=== PATIENT | female | born 1995 | race Caucasian/White ===

== ENCOUNTER 2018-04-22 19:14 | Outpatient (CLI) | payer OTHER ==
[2018-04-22 20:53] VITALS: BP 126/72; PULSE 88; RESP 16; TEMP 96.6
--- NOTE | 2018-04-23 07:44 | P.MSEPDOC ---
Presenting Problems - Arrival Data Date of Arrival on Unit: 04/22/18 Time of Arrival on Unit: 19:14 Mode of Transport: Ambulatory - Complaint OB-Reason for Admission/Chief Complaint: Decreased Movement Medical History - Information : 1 Para: 0 Term: 0 : 0 Abortions: Spontaneous or Elective: 0 Number of Living Children: 0 - Gestational Age Gestational Age by LES (wks/days): 39 Weeks and 1 Days Review of Systems - Review of Systems Constitutional: No problems Breast: No problems ENT: No problems Cardiovascular: No problems Respiratory: No problems Gastrointestinal: No problems Genitourinary: No problems Musculoskeletal: No problems Neurological: No problems Skin: No problems Vital Signs - Temperature Temperature: 96.6 F Temperature Source: Temporal Artery Scan - Pulse Right Brachial Pulse Rate: 88 Pulse Assessment Method: Automatic Cuff - Respirations Respiratory Rate: 16 Oxygen Delivery Method: Room Air O2 Sat by Pulse Oximetry: 98 - Blood Pressure Right Arm Blood Pressure: 126/72 Blood Pressure Mean: 90 Blood Pressure Source: Automatic Cuff Medical Screen Scoring (Pre) - Cervical Exam Dilation: Exam Deferred Effacement: Exam Deferred Membranes: Intact - Uterine Contractions Frequency: N/A Duration: N/A Intensity: N/A - Maternal Vital Signs Maternal Temperature: N/A Maternal Blood Pressure: N/A Signs of Preeclampsia: N/A Maternal Respirations: N/A - Pain Assessment Pain Scale Used: Numeric (1 - 10) Pain Intensity: 0 - Maternal Trauma Maternal Trauma: N/A - Assessment Baseline FHR: 120 Heart Rate - NICHD Category: Category I (Normal) = 0 NST: Reactive Position: N/A Station: N/A - Total Score Total Score (Pre): 0 - Level of Risk Level of Risk: Low (0-5) Physician Notification (Pre) - Physician Notified Physician Notified Date: 04/22/18 Physician Notified Time: 19:46 Physician/Practitioner Notifed:: Dr. Page Spoke With: Dr. Page New Order Received: Yes - Notification Comment Comment: Dr Page called and given report on pt in tr. Pt c/o. VS WNL. Reactive Nst. Irregular fht noted audibly at times. No c/o of contractions. movement noted. audibly and per nurse palpation. Orders recieved to d/c pt to home. Disposition - Disposition OB Disposition: Discharge to home Discharge Date: 04/22/18 Discharge Time: 19:55 I agree with the RN Medical Screening Exam: Yes Risk & Benefit of care provided described in d/c instruction: Yes Diagnosis: DECREASED MOVEMENTS, THIRD TRIMESTER, FETUS 1 (Patient pr esented with complaints of decreased movement. Patient is been getting care elsewhere apparently has an appointment with an automotive worker here in town in the next few days. Nonstress test was category 1. There is no evidence of maternal or compromise and therefore she is felt to be stable for discharge home follow up with her automotive worker. Patient was feeling movement here.)
== END 2018-04-22 19:55 | disposition home or self-care (01) ==
LOC: FBPOP 19:14
PROVIDERS: ATTEND Obstetrics & Gynecology
DX: O36.8131 Decreased fetal movements, third trimester, fetus 1 (principal); Z3A.39 39 weeks gestation of pregnancy
CPT/HCPCS: 59025; 99213

== ENCOUNTER 2018-07-06 10:44 | Emergency (ER) | payer OTHER ==
[2018-07-06 10:58] VITALS: TEMP 98.1
[2018-07-06] MEDS ORDERED: ONDANSETRON 4 MG/2 ML VIAL IVP STA (11:31)
[2018-07-06] MEDS ORDERED: KETOROLAC 30 MG/ML 1 ML VIAL IVP STA (11:31)
[2018-07-06] MEDS ORDERED: PANTOPRAZOLE 40 MG/10 ML VIAL IVP STA (11:31)
[2018-07-06] MEDS ORDERED: SODIUM CHLORIDE 0.9% 1,000 ML IV STA ×2 (11:31)
--- NOTE | 2018-07-06 11:35 | ED ---
Abdominal Pain HPI - General Chief Complaint: Abdominal Pain Stated Complaint: abdominal pain/blood in stool/dizziness Time Seen by Provider: 07/06/18 11:14 Source: patient, RN notes reviewed, old records reviewed Mode of arrival: ambulatory Limitations: no limitations - History of Present Illness Initial Comments: Patient is a 22-year-old female presents emergency department today complains of lower abdominal cramping that woke her up this morning. She states she had a bowel movement and noticed some bright red blood within each stool. She reports she had 4 bowel movements within the past hour. She states that she has had no recent travel history, denies any recent food exposures or any history of sick contacts with similar complaints. She denies any vomiting or nausea. Patient states that she's had no fevers or chills. She is 3 months for first child. She does state that she's been having intermittent vaginal bleeding sin ce that time but was started on the next one on. Her COMPRESS ENGINEER is Dr. Mcdonald. She denies any dysuria, or back pain. - Related Data Previous Rx's Medication Instructions Recorded Cephalexin [Keflex] 500 mg PO Q8HR #21 cap 07/06/18 Allergies Allergy/AdvReac Type Severity Reaction Status Date / Time Penicillins Allergy Swelling Verified 07/06/18 10:58 Sulfa (Sulfonamide Allergy Swelling Verified 07/06/18 10:58 Antibiotics) Review of Systems ROS Statement: Those systems with pertinent positive or pertinent negative responses have been documented in the HPI. ROS Other: All systems not noted in ROS Statement are negative. Past Medical History Past Medical History: No Reported History Additional Past Medical History / Comment(s): hydratinitis suppertiva- skin condition History of Any Multi-Drug Resistant Organisms: None Reported Past Surgical History: No Surgical Hx Reported Additional Past Surgical History / Comment(s): foot surgery 2007- bone chip removal Past Anesthesia/Blood Transfusion Reactions: No Reported Reaction Past Psychological History: No Psychological Hx Reported, Anxiety, Depression Smoking Status: Former smoker Past Alcohol Use History: None Reported Past Drug Use History: Marijuana - Past Family History Father Family Medical History: Coronary Artery Disease (CAD), Hypertension Mother Family Medical History: Hypertension Additional Family Medical History / Comment(s): anxiety/depression General Exam - General Exam Comments Initial Comments: 22-year-old female. Alert and oriented. No significant distress. Limitations: no limitations General appearance: alert, in no apparent distress Head exam: Present: atraumatic, normocephalic, normal inspection Eye exam: Present: normal appearance, PERRL, EOMI. Absent: scleral icterus, conjunctival injection, periorbital swelling ENT exam: Present: normal exam, mucous membranes moist Neck exam: Present: normal inspection. Absent: tenderness, meningismus, lymphadenopathy Respiratory exam: Present: normal lung sounds bilaterally. Absent: respiratory distress, wheezes, rales, rhonchi, stridor Cardiovascular Exam: Present: regular rate, normal rhythm, normal heart sounds. Absent: systolic murmur, diastolic murmur, rubs, gallop, clicks GI/Abdominal exam: Present: soft, normal bowel sounds. Absent: distended, tenderness, guarding, rebound, rigid Extremities exam: Present: normal inspection, full ROM, normal capillary refill. Absent: tenderness, pedal edema, joint swelling, calf tenderness Back exam: Present: normal inspection Neurological exam: Present: alert, oriented X3, CN II-XII intact Psychiatric exam: Present: normal affect, normal mood Skin exam: Present: warm, dry, intact, normal color. Absent: rash Course Vital Signs 07/06/18 10:55 Temperature 98.1 F Pulse Rate 85 Respiratory 18 Rate Blood Pressure 114/81 O2 Sat by Pulse 100 Oximetry Medical Decision Making - Medical Decision Making 20 for family stressors are safer lower dull cramping,. The cramping pain. She also has bloody stool. Patient has some bright blood per rectum, but no significant external hemorrhoids noted. Patient didn't sided flank and abdomina l tenderness. Urinalysis does show mild infection. Culture be completed. Patient CT of abdomen and pelvis shows no evidence of colitis, there was some straightening possible contusion around the kidney. Patient will be treated the same a short course of Macrobid to treat for urinary tract infection advised the Patient follow-up with her primary care doctor about the possibility of internal hemorrhoids that may be PVCs needing to see a surgeon. We'll discharge Patient was stool softeners. All questions answered. - Lab Data Result diagrams: 07/06/18 11:20 07/06/18 11:20 Lab Results 07/06/18 07/06/18 07/06/18 Range/Units 11:20 11:20 11:20 WBC 11.5 H (3.8-10.6) k/uL RBC 4.17 (3.80-5.40) m/uL Hgb 10.5 L (11.4-16.0) gm/dL Hct 34.6 (34.0-46.0) % MCV 82.8 (80.0-100.0) fL MCH 25.2 (25.0-35.0) pg MCHC 30.5 L (31.0-37.0) g/dL RDW 14.9 (11.5-15.5) % Plt Count 494 H (150-450) k/uL Neutrophils % 79 % Lymphocytes % 16 % Monocytes % 3 % Eosinophils % 2 % Basophils % 0 % Neutrophils # 9.1 H (1.3-7.7) k/uL Lymphocytes # 1.8 (1.0-4.8) k/uL Monocytes # 0.3 (0-1.0) k/uL Eosinophils # 0.2 (0-0.7) k/uL Basophils # 0.0 (0-0.2) k/uL Hypochromasia Slight PT 9.4 (9.0-12.0) sec INR 0.9 (<1.2) APTT 27.0 (22.0-30.0) sec Sodium 140 (137-145) mmol/L Potassium 4.4 (3.5-5.1) mmol/L Chloride 110 H (98-107) mmol/L Carbon Dioxide 23 (22-30) mmol/L Anion Gap 7 mmol/L BUN 8 (7-17) mg/dL Creatinine 0.63 (0.52-1.04) mg/dL Est GFR (CKD-EPI)AfAm >90 (>60 ml/min/1.73 sqM) Est GFR (CKD-EPI)NonAf >90 (>60 ml/min/1.73 sqM) Glucose 78 (74-99) mg/dL Calcium 9.2 (8.4-10.2) mg/dL Total Bilirubin 0.4 (0.2-1.3) mg/dL AST 19 (14-36) U/L ALT 21 (9-52) U/L Alkaline Phosphatase 82 (38-126) U/L Total Protein 7.0 (6.3-8.2) g/dL Albumin 4.1 (3.5-5.0) g/dL Amylase 52 (30-110) U/L Lipase 55 (23-300) U/L Urine Color Urine Appearance (Clear) Urine pH (5.0-8.0) Ur Specific Bohannon (1.001-1.035) Urine Protein (Negative) Urine Glucose (UA) (Negative) Urine Ketones (Negative) Urine Blood (Negative) Urine Nitrite (Negative) Urine Bilirubin (Negative) Urine Urobilinogen (<2.0) mg/dL Ur Leukocyte Esterase (Negative) Urine RBC (0-5) /hpf Urine WBC (0-5) /hpf Ur Squamous Epith Cells (0-4) /hpf Urine Bacteria (None) /hpf Urine Mucus (None) /hpf Stool Occult Blood (Negative) 07/06/18 07/06/18 Range/Units 11:20 11:20 WBC (3.8-10.6) k/uL RBC (3.80-5.40) m/uL Hgb (11.4-16.0) gm/dL Hct (34.0-46.0) % MCV (80.0-100.0) fL MCH (25.0-35.0) pg MCHC (31.0-37.0) g/dL RDW (11.5-15.5) % Plt Count (150-450) k/uL Neutrophils % % Lymphocytes % % Monocytes % % Eosinophils % % Basophils % % Neutrophils # (1.3-7.7) k/uL Lymphocytes # (1.0-4.8) k/uL Monocytes # (0-1.0) k/uL Eosinophils # (0-0.7) k/uL Basophils # (0-0.2) k/uL Hypochromasia PT (9.0-12.0) sec INR (<1.2) APTT (22.0-30.0) sec Sodium (137-145) mmol/L Potassium (3.5-5.1) mmol/L Chloride (98-107) mmol/L Carbon Dioxide (22-30) mmol/L Anion Gap mmol/L BUN (7-17) mg/dL Creatinine (0.52-1.04) mg/dL Est GFR (CKD-EPI)AfAm (>60 ml/min/1.73 sqM) Est GFR (CKD-EPI)NonAf (>60 ml/min/1.73 sqM) Glucose (74-99) mg/dL Calcium (8.4-10.2) mg/dL Total Bilirubin (0.2-1.3) mg/dL AST (14-36) U/L ALT (9-52) U/L Alkaline Phosphatase (38-126) U/L Total Protein (6.3-8.2) g/dL Albumin (3.5-5.0) g/dL Amylase (30-110) U/L Lipase (23-300) U/L Urine Color Light Yellow Urine Appearance Cloudy H (Clear) Urine pH 6.0 (5.0-8.0) Ur Specific Boh[place] 1.007 (1.001-1.035) Urine Protein Negative (Negative) Urine Glucose (UA) Negative (Negative) Urine Ketones Negative (Negative) Urine Blood Moderate H (Negative) Urine Nitrite Negative (Negative) Urine Bilirubin Negative (Negative) Urine Urobilinogen <2.0 (<2.0) mg/dL Ur Leukocyte Esterase Small H (Negative) Urine RBC 3 (0-5) /hpf Urine WBC 6 H (0-5) /hpf Ur Squamous Epith Cells 12 H (0-4) /hpf Urine Bacteria Rare H (None) /hpf Urine Mucus Rare H (None) /hpf Stool Occult Blood Positive H (Negative) - Radiology Data Radiology results: report reviewed No findings to correlate with hematochezia or melena no pericolic fat stranding. Subcutaneous that straining slightly more focal on the right than left particularly of the right flank. Correlate with fluid overload or contusion. Minimal left basilar stranding opacity that may represent atelectasis or developing pneumonia. Mild degree of hepatic steatosis. Disposition Clinical Impression: Enteritis, UTI (urinary tract infection) Disposition: HOME SELF-CARE Condition: Good Instructions (If sedation given, give patient instructions): Hemorrhoids (ED), Enteritis (ED), Urinary Tract Infection in Women (DC) Additional Instructions: Follow-up with her primary care physician. Clear liquid diet for next 1-2 days. Return to the emergency department if any alarming signs or symptoms occur. Prescriptions: Cephalexin [Keflex] 500 mg PO Q8HR #21 cap Is patient prescribed a controlled substance at d/c from ED?: No Referrals: None,Stated [Primary Care Provider] - 1-2 days
[2018-07-06 12:14] LABS: Basophils % (A) 0 %; Eosinophils # (A) 0.2 k/uL (0-0.7); Eosinophils % (A) 2 %; HCT 34.6 % (34.0-46.0); HGB 10.5 gm/dL (11.4-16.0); Hypochromasia Slight; Lymphocytes # (A) 1.8 k/uL (1.0-4.8); Lymphocytes % (A) 16 %; MCH 25.2 pg (25.0-35.0); MCHC 30.5 g/dL (31.0-37.0); MCV 82.8 fL (80.0-100.0); Mean Platelet Volume 6.2; Monocytes # (A) 0.3 k/uL (0-1.0); Monocytes % (A) 3 %; Neutrophils # (A) 9.1 k/uL (1.3-7.7); Neutrophils % (A) 79 %; Platelet Count 494 k/uL (150-450); RBC 4.17 m/uL (3.80-5.40); RDW 14.9 % (11.5-15.5); WBC 11.5 k/uL (3.8-10.6)
--- NOTE | 2018-07-06 12:22 | XR ---
EXAMINATION TYPE: XR KUB DATE OF EXAM: 07/06/2018 12:10 PM CLINICAL HISTORY: Lower abdominal pain and bloody stool TECHNIQUE: Single upright image of the abdomen is obtained. COMPARISON: 09/19/2012. FINDINGS: Scattered gas is seen in non-distended small bowel loops. Gas and fecal material is seen in non-distended colon. There is no visceromegaly, pneumoperitoneum, or abnormal calcification apprecia leticia. The lung bases are clear and the osseous structures are intact. IMPRESSION: Nonobstructive bowel gas pattern.
[2018-07-06 12:23] LABS: INR 0.9 (<1.2); Prothrombin Time 9.4 sec (9.0-12.0)
[2018-07-06 12:28] LABS: Appearance,Urine Cloudy (Clear); Bacteria,Urine Rare /hpf; Bilirubin,Urine Negative (Negative); Blood,Urine Moderate (Negative); Color,Urine Light Yellow; Glucose,Urine (UA) Negative (Negative); Ketones,Urine Negative (Negative); Leukocyte Esterase,Urine Small (Negative); Mucus,Urine Rare /hpf; Nitrite,Urine Negative (Negative); Protein,Urine Negative (Negative); RBC,Urine 3 /hpf (0-5); Specific Gravity,Urine 1.007 (1.001-1.035); Squamous Epithelial Cell,Urine 12 /hpf (0-4); Urobilinogen,Urine <2.0 mg/dL (<2.0); WBC,Urine 6 /hpf (0-5)
[2018-07-06 12:30] LABS: ALT 21 U/L (9-52); AST 19 U/L (14-36); Albumin 4.1 g/dL (3.5-5.0); Alkaline Phosphatase 82 U/L (38-126); Amylase 52 U/L (30-110); Anion Gap 7 mmol/L; Blood Urea Nitrogen 8 mg/dL (7-17); Calcium 9.2 mg/dL (8.4-10.2); Carbon Dioxide 23 mmol/L (22-30); Chloride 110 mmol/L (98-107); Glucose 78 mg/dL (74-99); Lipase 55 U/L (23-300); Potassium 4.4 mmol/L (3.5-5.1); Sodium 140 mmol/L (137-145); Total Bilirubin 0.4 mg/dL (0.2-1.3)
--- NOTE | 2018-07-06 13:57 | CT ---
EXAMINATION TYPE: CT abdomen pelvis w con DATE OF EXAM: 07/06/2018 HISTORY: Abd pain/blood in stool CT DLP: 1707.1mGycm Automated Exposure Control for Dose Reduction was Utilized. CONTRAST: CT scan of the abdomen and pelvis is performed with IV Contrast, patient injected with 100 mL of Isov ue 300. COMPARISON: None. FINDINGS: LUNG BASES: Minimal patchy airspace disease is seen on image 12 at the left lung base. This could rep resent atelectasis or developing pneumonia. LIVER/GB: Hepatic parenchyma is diffusely hypoattenuated in comparison to that of the spleen, most co mmonly seen in hepatic steatosis. This finding limits evaluation for hepatic masses. No gross evidenc e of hepatic mass is seen. No intrahepatic biliary ductal dilatation. No cholelithiasis. PANCREAS: No significant abnormality is seen. SPLEEN: No significant abnormality is seen. ADRENALS: No significant abnormality is seen. KIDNEYS: There is a punctate 2 mm too small to accurately characterize left upper pole renal lesion m edially on image 25 on delayed series 301. There is a questionable prominent renal pyramid versus too small to accurately characterize lesion on image 40 on delayed sequence within the right lower pole. . BOWEL: Appendix is not well seen however no focal right lower quadrant fat stranding changes are seen . There are few scattered colonic diverticula without pericolonic fat stranding. UTERUS/ADNEXA: What appears to be the right ovary is present adjacent to the expected location of the appendix contiguous with the gonadal ovary. There is a punctate calcification such as on image 65 in this region that could represent a gonadal vein phlebolith or much less likely component of an ovari an dermoid. Trace amount of free fluid within the posterior cul-de-sac is likely physiologic in natur e. LYMPH NODES: No greater than 1cm abdominal or pelvic lymph nodes are appreciated. OSSEOUS STRUCTURES: No significant abnormality is seen. OTHER: Subcutaneous fat stranding is seen bilaterally within the flanks such as on image 43 however t his is greater on the right than left. Very small fat filled periumbilical hernia is noted. IMPRESSION: 1. No findings to correlate with the patient's hematochezia and/or melanotic. No pericolonic fat stra nding. Few sigmoid diverticula are seen without acute inflammatory process. 2. Subcutaneous fat stranding is slightly more focal on the right than left, particularly within the right flank such as on image 43. Correlate with fluid overload or contusion. 3. Minimal left basilar strandy opacity that may represent atelectasis or developing pneumonia. 4. Mild degree hepatic steatosis.
[2018-07-06 14:45] VITALS: BP 125/77; PULSE 86; RESP 16
== END 2018-07-06 14:55 | disposition home or self-care (01) ==
LOC: EC 10:44
DX: N39.0 Urinary tract infection, site not specified (principal); K52.9 Noninfective gastroenteritis and colitis, unspecified; K76.0 Fatty (change of) liver, not elsewhere classified; K57.30 Diverticulosis of large intestine without perforation or abscess without bleeding; Z88.0 Allergy status to penicillin; Z88.2 Allergy status to sulfonamides; Z87.891 Personal history of nicotine dependence
CPT/HCPCS: 36415; 80053; 82150; 83690; 85025; 85610; 85730; 82272; 81001; 74018; 74177; 99285; 96374; 96375 ×2; 96361 ×3; J2405; J1885; C9113; Q9967

== ENCOUNTER 2018-07-07 15:49 | Inpatient (IN) | payer OTHER ==
[2018-07-07] MEDS ORDERED: ACETAMINOPHEN TAB 500 MG TAB PO STA (16:13)
--- NOTE | 2018-07-07 16:23 | ED ---
Fever HPI <Kamran River - Last Filed: 07/07/18 20:06> - General Source: patient Mode of arrival: ambulatory Limitations: no limitations <Serge Loera - Last Filed: 07/07/18 20:26> - General Chief Complaint: Fever Stated Complaint: fever Time Seen by Provider: 07/07/18 15:58 - History of Present Illness Initial Comments: Patient is a 22-year-old female presented to emergency department with fever or chills. Patient reports she was in the emergency department yesterday for abdominal pain and blood in stool. Patient was diagnosed with a UTI and treated with Keflex. Patient reports she took one dose of Macrobid this morning. Patient reports she has been battling an upper respiratory infection for a week. Patient reports general achiness in her back, ribs, shoulders, hands. Patient reports sinus congestion, ear pain and sore throat. Patient denies any shortness of breath, cough, chest pain, chest tightness. Patient reports the abdominal pain has improved since yesterday but last night she developed fever, chills, night sweats. Patient denies hematochezia or hematuria. Patient denies any increased frequency, urgency or dysuria. Patient denies any nausea or vomiting. Patient reports her influenza vaccination is not up-to-date. (Serge Loera) - Related Data Previous Rx's Medication Instructions Recorded Cephalexin [Keflex] 500 mg PO Q8HR #21 cap 07/06/18 Allergies Allergy/AdvReac Type Severity Reaction Status Date / Time Penicillins Allergy Swelling Verified 07/07/18 15:57 Sulfa (Sulfonamide Allergy Swelling Verified 07/07/18 15:57 Antibiotics) Review of Systems ROS Other: All systems not noted in ROS Statement are negative. <Kamran River - Last Filed: 07/07/18 20:06> ROS Other: All systems not noted in ROS Statement are negative. <Serge Loera - Last Filed: 07/07/18 20:26> ROS Statement: Those systems with pertinent positive or pertinent negative responses have been documented in the HPI. Past Medical History Past Medical History: No Reported History Additional Past Medical History / Comment(s): hydratinitis suppertiva- skin condition History of Any Multi-Drug Resistant Organisms: None Reported Past Surgical History: Section Additional Past Surgical History / Comment(s): foot surgery 2007- bone chip removal Past Anesthesia/Blood Transfusion Reactions: No Reported Reaction Past Psychological History: No Psychological Hx Reported, Anxiety, Depression Past Alcohol Use History: Occasional Past Drug Use History: Marijuana - Past Family History Father Family Medical History: Coronary Artery Disease (CAD), Hypertension Mother Family Medical History: Hypertension Additional Family Medical History / Comment(s): anxiety/depression <Serge Loera - Last Filed: 07/07/18 20:26> General Exam Limitations: no limitations General appearance: alert, in no apparent distress Head exam: Present: atraumatic, normocephalic, normal inspection Eye exam: Present: normal appearance, PERRL, EOMI. Absent: conjunctival injection Pupils: Present: normal accommodation ENT exam: Present: normal exam, normal oropharynx, mucous membranes moist, TM's normal bilaterally Neck exam: Present: normal inspection, full ROM. Absent: tenderness, lymphade nopathy Respiratory exam: Present: normal lung sounds bilaterally. Absent: wheezes, rales, rhonchi, stridor, chest wall tenderness Cardiovascular Exam: Present: normal rhythm, tachycardia, normal heart sounds. Absent: systolic murmur GI/Abdominal exam: Present: tenderness (Mild tenderness in the left upper quadrant.), normal bowel sounds, other (No peritoneal signs. Negative Vasquez, McBurney point tenderness, psoas sign, Rovsing sign or rebound tenderness.). Absent: distended, guarding, rebound, rigid, organomegaly Extremities exam: Present: normal inspection, full ROM Back exam: Present: normal inspection, full ROM. Absent: tenderness, CVA tenderness (R), CVA tenderness (L) Neurological exam: Present: alert, oriented X3 Psychiatric exam: Present: normal affect, normal mood Skin exam: Present: warm, intact, normal color <Serge Loera - Last Filed: 07/07/18 20:26> Course <Kamran River - Last Filed: 07/07/18 20:06> Vital Signs 07/07/18 07/07/18 07/07/18 15:53 17:58 19:13 Temperature 103.1 F H 101.3 F H 99.3 F Pulse Rate 114 H 86 Respiratory 18 18 Rate Blood Pressure 123/80 108/61 O2 Sat by Pulse 99 97 Oximetry 07/07/18 20:19 Temperature Pulse Rate 109 H Respiratory 18 Rate Blood Pressure 109/71 O2 Sat by Pulse 100 Oximetry - Reevaluation(s) Reevaluation #1: 07/07/18 20:06 Patient meet sepsis criteria diagnosed at 20 00. Blood culture and lactic acid have been ordered. IV antibiotics will be ordered. (Kamran River) Medical Decision Making - Lab Data Result diagrams: 07/07/18 18:05 07/07/18 18:05 <Kamran River - Last Filed: 07/07/18 20:06> - Lab Data Result diagrams: 07/07/18 18:05 07/07/18 18:05 <Serge Loera - Last Filed: 07/07/18 20:26> - Medical Decision Making Patient reevaluated by myself, Dr. River. Patient resting comfortably in bed. Patient did present yesterday. Patient did have abdominal discomfort for 4-6 hours yesterday with associated single episode of bloody stool. Patient did have computed tomography scan showing no acute abdominal etiology however did question pneumonia. Patient returns today with fever and myalgias. Patient white blood cell count has increased 24. Patient does admit to having upper a story symptoms including cough with productive green sputum. Patient updated on results and plan. Case was discussed in detail with Dr. Coleman, who will admit for hospital call. (Kamran River) - Lab Data Lab Results 07/07/18 07/07/18 07/07/18 Range/Units 16:24 16:50 18:05 WBC 24.1 H (3.8-10.6) k/uL RBC 4.28 (3.80-5.40) m/uL Hgb 10.6 L (11.4-16.0) gm/dL Hct 34.2 (34.0-46.0) % MCV 80.0 (80.0-100.0) fL MCH 24.9 L (25.0-35.0) pg MCHC 31.1 (31.0-37.0) g/dL RDW 14.9 (11.5-15.5) % Plt Count 479 H (150-450) k/uL Neutrophils % 92 % Lymphocytes % 4 % Monocytes % 3 % Eosinophils % 2 % Basophils % 0 % Neutrophils # 22.1 H (1.3-7.7) k/uL Lymphocytes # 0.8 L (1.0-4.8) k/uL Monocytes # 0.6 (0-1.0) k/uL Eosinophils # 0.5 (0-0.7) k/uL Basophils # 0.0 (0-0.2) k/uL Sodium (137-145) mmol/L Potassium (3.5-5.1) mmol/L Chloride (98-107) mmol/L Carbon Dioxide (22-30) mmol/L Anion Gap mmol/L BUN (7-17) mg/dL Creatinine (0.52-1.04) mg/dL Est GFR (CKD-EPI)AfAm (>60 ml/min/1.73 sqM) Est GFR (CKD-EPI)NonAf (>60 ml/min/1.73 sqM) Glucose (74-99) mg/dL Plasma Lactic Acid Luis (0.7-2.0) mmol/L Calcium (8.4-10.2) mg/dL Total Bilirubin (0.2-1.3) mg/dL AST (14-36) U/L ALT (9-52) U/L Alkaline Phosphatase (38-126) U/L Total Protein (6.3-8.2) g/dL Albumin (3.5-5.0) g/dL Urine Color Yellow Urine Appearance Cloudy H (Clear) Urine pH 5.5 (5.0-8.0) Ur Specific [place] 1.016 (1.001-1.035) Urine Protein Negative (Negative) Urine Glucose (UA) Negative (Negative) Urine Ketones Negative (Negative) Urine Blood Moderate H (Negative) Urine Nitrite Negative (Negative) Urine Bilirubin Negative (Negative) Urine Urobilinogen <2.0 (<2.0) mg/dL Ur Leukocyte Esterase Moderate H (Negative) Urine RBC 3 (0-5) /hpf Urine WBC 58 H (0-5) /hpf Ur Squamous Epith Cells 17 H (0-4) /hpf Amorphous Sediment Rare H (None) /hpf Urine Mucus Rare H (None) /hpf Influenza Type A RNA Not Detected (Not Detectd) Influenza Type B (PCR) Not Detected (Not Detectd) 07/07/18 07/07/18 Range/Units 18:05 18:05 WBC (3.8-10.6) k/uL RBC (3.80-5.40) m/uL Hgb (11.4-16.0) gm/dL Hct (34.0-46.0) % MCV (80.0-100.0) fL MCH (25.0-35.0) pg MCHC (31.0-37.0) g/dL RDW (11.5-15.5) % Plt Count (150-450) k/uL Neutrophils % % Lymphocytes % % Monocytes % % Eosinophils % % Basophils % % Neutrophils # (1.3-7.7) k/uL Lymphocytes # (1.0-4.8) k/uL Monocytes # (0-1.0) k/uL Eosinophils # (0-0.7) k/uL Basophils # (0-0.2) k/uL Sodium 139 (137-145) mmol/L Potassium 3.6 (3.5-5.1) mmol/L Chloride 106 (98-107) mmol/L Carbon Dioxide 22 (22-30) mmol/L Anion Gap 11 mmol/L BUN 5 L (7-17) mg/dL Creatinine 0.59 (0.52-1.04) mg/dL Est GFR (CKD-EPI)AfAm >90 (>60 ml/min/1.73 sqM) Est GFR (CKD-EPI)NonAf >90 (>60 ml/min/1.73 sqM) Glucose 90 (74-99) mg/dL Plasma Lactic Acid Luis 0.7 (0.7-2.0) mmol/L Calcium 9.6 (8.4-10.2) mg/dL Total Bilirubin 0.8 (0.2-1.3) mg/dL AST 14 (14-36) U/L ALT 15 (9-52) U/L Alkaline Phosphatase 85 (38-126) U/L Total Protein 7.5 (6.3-8.2) g/dL Albumin 4.4 (3.5-5.0) g/dL Urine Color Urine Appearance (Clear) Urine pH (5.0-8.0) Ur Specific [place] (1.001-1.035) Urine Protein (Negative) Urine Glucose (UA) (Negative) Urine Ketones (Negative) Urine Blood (Negative) Urine Nitrite (Negative) Urine Bilirubin (Negative) Urine Urobilinogen (<2.0) mg/dL Ur Leukocyte Esterase (Negative) Urine RBC (0-5) /hpf Urine WBC (0-5) /hpf Ur Squamous Epith Cells (0-4) /hpf Amorphous Sediment (None) /hpf Urine Mucus (None) /hpf Influenza Type A RNA (Not Detectd) Influenza Type B (PCR) (Not Detectd) Disposition <Kamran River - Last Filed: 07/07/18 20:06> Time of Disposition: 20:26 <Serge Loera - Last Filed: 07/07/18 20:26> Clinical Impression: Chills with fever Disposition: ADMITTED IP TO THIS HOSP Condition: Stable Instructions (If sedation given, give patient instructions): Fever in Adults (E D) Additional Instructions: Patient will be admitted. Referrals: None,Stated [Primary Care Provider] - 1-2 days
[2018-07-07 17:14] LABS: Amorphous Sediment,Urine Rare /hpf; Appearance,Urine Cloudy (Clear); Bilirubin,Urine Negative (Negative); Blood,Urine Moderate (Negative); Color,Urine Yellow; Glucose,Urine (UA) Negative (Negative); Ketones,Urine Negative (Negative); Leukocyte Esterase,Urine Moderate (Negative); Mucus,Urine Rare /hpf; Nitrite,Urine Negative (Negative); PH, Urine 5.5 (5.0-8.0); Protein,Urine Negative (Negative); RBC,Urine 3 /hpf (0-5); Specific Gravity,Urine 1.016 (1.001-1.035); Squamous Epithelial Cell,Urine 17 /hpf (0-4); Urobilinogen,Urine <2.0 mg/dL (<2.0); WBC,Urine 58 /hpf (0-5)
[2018-07-07] MEDS ORDERED: SODIUM CHLORIDE 0.9% 3,000 ML IV STA (17:47)
[2018-07-07 18:26] LABS: Basophils % (A) 0 %; Eosinophils # (A) 0.5 k/uL (0-0.7); Eosinophils % (A) 2 %; HCT 34.2 % (34.0-46.0); HGB 10.6 gm/dL (11.4-16.0); Lymphocytes # (A) 0.8 k/uL (1.0-4.8); Lymphocytes % (A) 4 %; MCH 24.9 pg (25.0-35.0); MCHC 31.1 g/dL (31.0-37.0); Mean Platelet Volume 6.2; Monocytes # (A) 0.6 k/uL (0-1.0); Monocytes % (A) 3 %; Neutrophils # (A) 22.1 k/uL (1.3-7.7); Neutrophils % (A) 92 %; Platelet Count 479 k/uL (150-450); RBC 4.28 m/uL (3.80-5.40); RDW 14.9 % (11.5-15.5); WBC 24.1 k/uL (3.8-10.6)
[2018-07-07 18:34] LABS: ALT 15 U/L (9-52); AST 14 U/L (14-36); Albumin 4.4 g/dL (3.5-5.0); Alkaline Phosphatase 85 U/L (38-126); Anion Gap 11 mmol/L; Blood Urea Nitrogen 5 mg/dL (7-17); Calcium 9.6 mg/dL (8.4-10.2); Carbon Dioxide 22 mmol/L (22-30); Chloride 106 mmol/L (98-107); Glucose 90 mg/dL (74-99); Potassium 3.6 mmol/L (3.5-5.1); Sodium 139 mmol/L (137-145); Total Bilirubin 0.8 mg/dL (0.2-1.3); Total Protein 7.5 g/dL (6.3-8.2)
--- NOTE | 2018-07-07 19:52 | XR ---
EXAMINATION TYPE: XR chest 2V DATE OF EXAM: 07/07/2018 COMPARISON: NONE HISTORY: None TECHNIQUE: Frontal and lateral views of the chest are obtained. FINDINGS: Heart and mediastinum are normal. Lungs are clear. Diaphragm is normal. Bony thorax appear s normal. IMPRESSION: Normal chest.
[2018-07-07] MEDS ORDERED: AZITHROMYCIN 500 MG in SODIUM CHLORIDE 0.9% 250 ML IVPB STA (20:06)
[2018-07-07] MEDS ORDERED: PNEUMONIA PROTOCOL UTILIZED 1 EACH MISC PO PRN (20:06)
[2018-07-07] MEDS: SODIUM CHLORIDE 0.9% 1,000 ML IV SCH (21:10)
[2018-07-07] MEDS ORDERED: IBUPROFEN 400 MG TAB PO PRN (21:43)
[2018-07-07] MEDS ORDERED: ACETAMINOPHEN TAB 325 MG TAB PO PRN (21:43)
[2018-07-07] MEDS ORDERED: IBUPROFEN 600 MG TAB PO PRN (21:47)
--- NOTE | 2018-07-07 22:48 | P.HPIM ---
History of Present Illness H&P Date: 07/07/18 Chief Complaint: fever, body aches 22-year-old female with no significant past medical history. Patient is 8 weeks she gave in April 2018 to a healthy baby Patient presented to the hospital with more than 2 week history of sinus congestion and headaches, however over the past week she started having greenish purulent nasal drainage, along with worsening of her headaches, chills and fevers. She was having body aches all over. She is also coughing greenish sputum at times. Denies any chest pain or trouble breathing. Patient denies any urinary symptoms. Yesterday she visited the ED for bloody bowel movements where she had diarrhea and some blood and it however that since has resolved. She denies any similar history in the past. She reports now she is having regular bowel movements. Patient was given Keflex yesterday due to ALLERGIES to penicillin and sulfa. However she only took one dose today and decided to come back to the hospital due to not feeling well. She reports severe upper respiratory infection like symptoms along with body aches and sinus pain. In the ED chest x-ray was negative. She was found to be febrile tachycardic and has high white blood count. Flu swab was negative. Patient was admitted for observation and antibiotic therapy. Review of Systems Pertinent positives as noted in HPI. All other systems were reviewed and are negative Past Medical History Past Medical History: No Reported History Additional Past Medical History / Comment(s): hydratinitis suppertiva- skin condition History of Any Multi-Drug Resistant Organisms: None Reported Past Surgical History: Section Additional Past Surgical History / Comment(s): foot surgery 2006- bone chip removal Past Anesthesia/Blood Transfusion Reactions: No Reported Reaction Past Psychological History: No Psychological Hx Reported, Anxiety, Depression Past Alcohol Use History: Occasional Past Drug Use History: Marijuana - Past Family History Father Family Medical History: Coronary Artery Disease (CAD), Hypertension Mother Family Medical History: Hypertension Additional Family Medical History / Comment(s): anxiety/depression Medications and Allergies Home Medications Medication Instructions Recorded Confirmed Type Cephalexin [Keflex] 500 mg PO Q8HR #21 cap 07/06/18 07/07/18 Rx Ibuprofen [Motrin Ib] 200 mg PO Q8H 07/07/18 07/07/18 History Allergies Allergy/AdvReac Type Severity Reaction Status Date / Time Penicillins Allergy Swelling Verified 07/07/18 21:57 Sulfa (Sulfonamide Allergy Swelling Verified 07/07/18 21:57 Antibiotics) Physical Exam Vitals: Vital Signs Temp Pulse Resp BP Pulse Ox 07/07/18 21:11 99.0 F 102 H 18 134/81 98 07/07/18 20:19 109 H 18 109/71 100 07/07/18 19:13 99.3 F 86 18 108/61 97 07/07/18 17:58 101.3 F H 07/07/18 15:53 103.1 F H 114 H 18 123/80 99 Intake and Output 07/07/18 07/07/18 07/07/18 06:59 14:59 22:59 Other: Weight 113.398 kg Constitutional: No acute distress, conversant, pleasant Eyes: Anicteric sclerae, moist conjunctiva, no lid-lag Pupils equal round reactive to light ENMT: NC/AT, no tenderness to palpation of her sinuses but she felt slight discomfort Oropharynx clear, no erythema, or exudates Neck: Supple, FROM, no masses, or JVD No carotid bruits No thyromegaly Lungs: Clear to auscultation Clear to percussion Normal respiratory effort, no accessory muscle use Cardiovascular: Heart regular in rate and rhythm, No murmurs, gallops, or rubs No peripheral edema Abdominal: Soft Nontender, no guarding, rebound or rigidity Abdomen moving with respiration Normoactive bowel sounds No hepatomegaly, No splenomegaly No palpable mass No abdominal wall hernia noted Skin: Normal temperature, tone, texture, turgor No induration No subcutaneous nodules No rash, lesions No ulcers Extremities: No digital cyanosis No clubbing Pedal pulses intact and symmetrical Radial pulses intact and symmetrical No calf tenderness Psychiatric: Alert and oriented to person, place and time Appropriate affect fair judgment Neuro Muscles Strength 5/5 in all 4 extremities Sensation to light touch grossly present throughout Cranial nerves II-XII grossly intact No focal sensory deficits Lymphatics: no palpable cervical or supraclavicular , or inguinal lymph nodes Results CBC & Chem 7: 07/07/18 18:05 07/07/18 18:05 Labs: Abnormal Lab Results - Last 24 Hours (Table) 07/07/18 07/07/18 07/07/18 Range/Units 16:50 18:05 18:05 WBC 24.1 H (3.8-10.6) k/uL Hgb 10.6 L (11.4-16.0) gm/dL MCH 24.9 L (25.0-35.0) pg Plt Count 479 H (150-450) k/uL Neutrophils # 22.1 H (1.3-7.7) k/uL Lymphocytes # 0.8 L (1.0-4.8) k/uL BUN 5 L (7-17) mg/dL Urine Appearance Cloudy H (Clear) Urine Blood Moderate H (Negative) Ur Leukocyte Esterase Moderate H (Negative) Urine WBC 58 H (0-5) /hpf Ur Squamous Epith Cells 17 H (0-4) /hpf Amorphous Sediment Rare H (None) /hpf Urine Mucus Rare H (None) /hpf Microbiology - Last 24 Hours (Table) 07/07/18 16:50 Urine Culture - Preliminary Urine,Voided Assessment and Plan Assessment: 22-year-old femalewith no significant past medical history she recently gave in April 2018to a healthy baby patient admitted under observation with anticipated length of stay less than 48 hours due to sepsis secondary to underlying acute sinusitis and viral syndrome Chin has features suggestive of acute bacterial sinusitis due to duration of symptoms of 2 weeks and purulent nasal drainage Plan: Sepsis secondary to underlying acute bacterial sinusitis and viral syndrome IV fluid hydration Follow-up cultures Discontinue azithromycin and Rocephin, started the patient on doxycycline for management of possible acute bacterial sinusitis.. Patient is ALLERGIC to penicillin and sulfa Supportive care Close monitoring of vital signs and labs DVT prophylaxis heparin subcu 3 times a day Tobacco smoking abuse Patient counseled to quit smoking for more than 3 minutes Nicotine replacement therapy offered Mild anemia most likely secondary to recent and being in period Consider outpatient follow-up Surrogate decision-maker: patient mother CODE STATUS:full code Discussed with: Patient, ER, RN Anticipated discharge: <[address]: home A total of 60 minutes was spent on the care of this complex patient more than 50% of the time was spent in counseling and care coordination.
[2018-07-07 22:59] VITALS: BMI 38.4
[2018-07-07] MEDS: LORATADINE 10 MG TAB PO SCH (23:16)
[2018-07-07] MEDS: DOXYCYCLINE 100 MG CAP PO SCH (23:16)
[2018-07-07] MEDS: FLUTICASONE 50MCG/SPRAY NASAL 16GM EA NOSTRIL SCH (23:16)
[2018-07-08] MEDS: HEPARIN SODIUM,PORCINE 5,000 UNIT/ML 1 ML VIAL SQ SCH ×2 (00:28→08:19)
[2018-07-08] MEDS: SODIUM CHLORIDE 0.9% 1,000 ML IV SCH (00:32)
--- NOTE | 2018-07-08 07:31 | XR ---
EXAMINATION TYPE: XR chest 2V DATE OF EXAM: 07/08/2018 HISTORY: pneumonia. REFERENCE: Previous study dated 07/07/2018. FINDINGS: The lungs remain clear. Pleural space are clear. The heart is not enlarged. IMPRESSION: NO ACTIVE INTRATHORACIC DISEASE.
[2018-07-08] MEDS: DOXYCYCLINE 100 MG CAP PO SCH (08:19)
[2018-07-08] MEDS: LORATADINE 10 MG TAB PO SCH (08:19)
[2018-07-08] MEDS: FLUTICASONE 50MCG/SPRAY NASAL 16GM EA NOSTRIL SCH (08:19)
[2018-07-08 08:38] LABS: Basophils % (A) 0 %; Eosinophils # (A) 0.3 k/uL (0-0.7); Eosinophils % (A) 2 %; HCT 30.9 % (34.0-46.0); HGB 9.6 gm/dL (11.4-16.0); Hypochromasia Marked; Lymphocytes # (A) 1.3 k/uL (1.0-4.8); Lymphocytes % (A) 8 %; MCH 25.3 pg (25.0-35.0); MCHC 31.1 g/dL (31.0-37.0); MCV 81.4 fL (80.0-100.0); Mean Platelet Volume 6.6; Monocytes # (A) 0.5 k/uL (0-1.0); Monocytes % (A) 3 %; Neutrophils # (A) 13.4 k/uL (1.3-7.7); Neutrophils % (A) 85 %; Platelet Count 438 k/uL (150-450); RBC 3.79 m/uL (3.80-5.40); RDW 14.3 % (11.5-15.5); WBC 15.8 k/uL (3.8-10.6)
[2018-07-08 08:55] LABS: Anion Gap 7 mmol/L; Blood Urea Nitrogen 5 mg/dL (7-17); Calcium 8.5 mg/dL (8.4-10.2); Carbon Dioxide 25 mmol/L (22-30); Chloride 111 mmol/L (98-107); Glucose 89 mg/dL (74-99); Potassium 4.1 mmol/L (3.5-5.1); Sodium 143 mmol/L (137-145)
[2018-07-08] MEDS ORDERED: NICOTINE 14MG/24HR PATCH TRANSDERM SCH (09:00)
[2018-07-08 09:16] VITALS: TEMP 98.1
[2018-07-08 12:23] VITALS: BP 109/69; PULSE 72; RESP 16
--- NOTE | 2018-07-08 13:33 | P.DS ---
Providers Date of admission: 07/07/18 20:38 Expected date of discharge: 07/08/18 Attending physician: Sanaz Newman MD Primary care physician: Stated None Hospital Course: 22-year-old female with no significant past medical history. Patient is 8 weeks she gave in April 2018 to a healthy baby Patient presented to the hospital with more than 2 week history of sinus congestion and headaches, however over the past week she started having greenish purulent nasal drainage, along with worsening of her headaches, chills and fevers. She was having body aches all over. She is also coughing greenish sputum at times. Denies any chest pain or trouble breathing. Patient denies any urinary symptoms. Yesterday she visited the ED for bloody bowel movements where she had diarrhea and some blood and it however that since has resolved. She denies any similar history in the past. She reports now she is having regular bowel movements. Patient was given Keflex yesterday due to ALLERGIES to penicillin and sulfa. However she only took one dose today and decided to come back to the hospital due to not feeling well. She reports severe upper respiratory infection like symptoms along with body aches and sinus pain. In the ED chest x-ray was negative. She was found to be febrile tachycardic and has high white blood count. Flu swab was negative. Patient was admitted for observation and antibiotic therapy. Patient was given 3 L bolus of normal saline in the ED. She was started on normal saline at 140 mL/h. Patient was started on doxycycline by mouth for treatment of sinusitis and possible UTI. She was given Tylenol as needed for fever. Patient was seen and examined prior to discharge. No acute events overnight. Patient requesting to go home, states that she has a baby that she misses very much. She denies any fever or chills. She denies any nausea or vomiting. No chest pain, shortness of breath or palpitations. General: [non toxic], [no distress], [appears at stated age] Derm: [warm], [dry] Head: [atraumatic], [normocephalic], [symmetric], [right-sided tenderness over the frontal and maxillary sinus] Eyes: [EOMI], [no lid lag], [anicteric sclera] Mouth: [no lip lesion], [mucus membranes moist] Cardiovascular: [S1S2 reg], [no murmur], [positive DP pulse bilateral] Lungs: [CTA bilateral], [no rhonchi, no rales] , [no accessory muscle use] Abdominal: [soft], [ nontender to palpation], [no guarding], [no appreciable organomegaly] Ext: [no gross muscle atrophy], [no edema], [no contractures] Neuro: [no focal neuro deficits] Psych: [Alert], [oriented], [appropriate affect] Assessment and Plan 1. Sepsis secondary to acute bacterial sinusitis 2. Tobacco smoker 3. Anemia 1. Patient initially met septic criteria (T-max 103.1 Fahrenheit, heart rate to 114, leukocytosis of 24.1 with positive source of infection). Chest x-ray negative for infection. Lactic acid negative. Plan: Continue doxycycline by mouth. Tylenol as needed for fever. Continue normal saline at 140 mL/h. Follow blood cultures. 2. Plan: Nicotine patch. 3. Hemoglobin 10.6-9.6, normocytic. Acute drop likely due to IVF dilution. Anemia likely related to recent . Plan: Daily CBC. Transfuse if hemoglobin less than 7. Patient admitted for sepsis related to acute bacterial sinusitis. On antibiotics by mouth. Patient has been afebrile since 5 PM yesterday. Patient would like to be discharged. We will discharge patient home on doxycycline, advised to follow-up blood cultures with PCP. Patient verbalized understanding. Pertinent Studies: Chest x-ray Patient Condition at Discharge: Stable Plan - Discharge Summary Discharge Rx Participant: Yes New Discharge Prescriptions: New Loratadine [Claritin] 10 mg PO DAILY #30 tab Fluticasone Nasal [place] [Flonase Nasal [place]] 2 spray EA NOSTRIL DAILY #1 spr Acetaminophen Tab [Tylenol] 650 mg PO Q6HR PRN tab PRN Reason: Fever And/ Or Pain Doxycycline [Vibramycin] 100 mg PO BID #14 cap Continue Ibuprofen [Motrin Ib] 800 mg PO Q8H Discontinued Cephalexin [Keflex] 500 mg PO Q8HR #21 cap Discharge Medication List Ibuprofen [Motrin Ib] 800 mg PO Q8H 07/07/18 [History] Acetaminophen Tab [Tylenol] 650 mg PO Q6HR PRN tab 07/08/18 [Rx] Doxycycline [Vibramycin] 100 mg PO BID #14 cap 07/08/18 [Rx] Fluticasone Nasal [place] [Flonase Nasal [place]] 2 spray EA NOSTRIL DAILY #1 spr 07/08/18 [Rx] Loratadine [Claritin] 10 mg PO DAILY #30 tab 07/08/18 [Rx] Follow up Appointment(s)/Referral(s): None,Stated [Primary Care Provider] - 1-2 days Patient Instructions/Handouts: Fever in Adults (ED) Activity/Diet/Wound Care/Special Instructions: Patient will be admitted. Follow-up with PCP within 1-2 days of discharge. Please follow-up blood cultures with a PCP. Take all medications as advised. Discharge Disposition: HOME SELF-CARE
[2018-07-08] MEDS ORDERED: AZITHROMYCIN 500 MG TAB PO SCH (21:00)
== END 2018-07-08 15:38 | disposition home or self-care (01) | DRG 872 ==
LOC: EC 15:49 → 6PED 20:38
PROVIDERS: ADMIT Internal Medicine; ATTEND Internal Medicine
DX: A41.9 Sepsis, unspecified organism (principal); N39.0 Urinary tract infection, site not specified; J01.90 Acute sinusitis, unspecified; Z71.6 Tobacco abuse counseling; F17.210 Nicotine dependence, cigarettes, uncomplicated; D64.9 Anemia, unspecified; Z82.49 Family history of ischemic heart disease and other diseases of the circulatory system; Z88.0 Allergy status to penicillin; Z88.2 Allergy status to sulfonamides; F41.9 Anxiety disorder, unspecified
CPT/HCPCS: 36415; 71046; 80048; 80053; 81001; 83605; 85025; 87040; 87086; 87502; 96361; 96365; 99285

== ENCOUNTER 2019-12-14 17:33 | Inpatient (IN) | payer MEDICAID, OTHER ==
--- NOTE | 2019-12-14 18:55 | ED ---
Psych HPI - General Chief Complaint: Psychiatric Symptoms Stated Complaint: EPS eval Time Seen by Provider: 12/14/19 17:38 Source: patient, RN notes reviewed, old records reviewed Mode of arrival: ambulatory - History of Present Illness Initial Comments: this is a 24 show female poor psychiatric illness and mental health presented with her son patient originally presented with son because he was found to be unresponsive upon arrival to her appointment activity mental health earlier today. Bystanders did state the patient was unresponsive with normal vital signs and alert. Patient continued to improve and brought in by EMS. Upon arrival with EMS. Patient is petition for psychiatric evaluation MD Complaint: altered mental status -: unknown History of same: Yes Quality: getting worse Improves With: none Worsens With: none Context: significant life stressor Associated Symptoms: denies other symptoms Treatments Prior to Arrival: placed on mental health hold - Related Data Home Medications Medication Instructions Recorded Confirmed No Known Home Medications 12/14/19 12/14/19 Allergies Allergy/AdvReac Type Severity Reaction Status Date / Time Penicillins Allergy Unknown Swelling Verified 12/14/19 18:15 Sulfa (Sulfonamide Allergy Unknown Swelling Verified 12/14/19 18:15 Antibiotics) Review of Systems ROS Statement: Those systems with pertinent positive or pertinent negative responses have been documented in the HPI. ROS Other: All systems not noted in ROS Statement are negative. Past Medical History Past Medical History: No Reported History Additional Past Medical History / Comment(s): hydratinitis suppertiva- skin condition History of Any Multi-Drug Resistant Organisms: None Reported Past Surgical History: Section Additional Past Surgical History / Comment(s): foot surgery 2007- bone chip removal Past Anesthesia/Blood Transfusion Reactions: No Reported Reaction Past Psychological History: Anxiety, Depression Smoking Status: Never smoker Past Alcohol Use History: None Reported Past Drug Use History: None Reported - Past Family History Father Family Medical History: Coronary Artery Disease (CAD), Hypertension Mother Family Medical History: Hypertension Additional Family Medical History / Comment(s): anxiety/depression General Exam Limitations: altered mental status General appearance: alert, in no apparent distress Head exam: Present: atraumatic, normocephalic, normal inspection Eye exam: Present: normal appearance, PERRL, EOMI. Absent: scleral icterus, conjunctival injection, periorbital swelling ENT exam: Present: normal exam, mucous membranes moist Neck exam: Present: normal inspection. Absent: tenderness, meningismus, lymphadenopathy Respiratory exam: Present: normal lung sounds bilaterally. Absent: respiratory distress, wheezes, rales, rhonchi, stridor Cardiovascular Exam: Present: regular rate, normal rhythm, normal heart sounds. Absent: systolic murmur, diastolic murmur, rubs, gallop, clicks GI/Abdominal exam: Present: soft, normal bowel sounds. Absent: distended, tenderness, guarding, rebound, rigid Extremities exam: Present: normal inspection, full ROM, normal capillary refill. Absent: tenderness, pedal edema, joint swelling, calf tenderness Back exam: Present: normal inspection Neurological exam: Present: alert, oriented X3, CN II-XII intact Psychiatric exam: Present: normal affect, normal mood Skin exam: Present: warm, dry, intact, normal color. Absent: rash Course Vital Signs 12/14/19 17:36 Temperature 98.4 F Pulse Rate 94 Respiratory 18 Rate Blood Pressure 134/97 O2 Sat by Pulse 97 Oximetry - Reevaluation(s) Reevaluation #1: 12/14/19 20:26 medical records reviewed Reevaluation #2: 12/14/19 20:26 cPS was called and did confiscate patient's child Reevaluation #3: 12/14/19 20:26 patient's medically clear for psychiatric evaluation Medical Decision Making - Medical Decision Making 24 female is been evaluated psychiatry, child was taken from patient here in the ER he was mildly unresponsive earlier today. Patient be admitted for psychiatric evaluation and treatment Disposition Clinical Impression: Psychosis, Acute psychosis Disposition: TRANSFER TO PSYCH HOSP/UNIT Condition: Fair Is patient prescribed a controlled substance at d/c from ED?: No Referrals: None,Stated [Primary Care Provider] - 1-2 days
[2019-12-15] MEDS ORDERED: MAG HYDROX/AL HYDROX/SIMETH 30 ML CUP PO PRN (02:14)
[2019-12-15] MEDS ORDERED: MAGNESIUM HYDROXIDE 2,400 MG/10 ML CUP PO PRN (02:14)
[2019-12-15] MEDS ORDERED: ZIPRASIDONE 20 MG VIAL IM PRN (02:14)
[2019-12-15] MEDS ORDERED: OLANZapine 5 MG TAB PO PRN (02:17)
[2019-12-15 09:19] LABS: Basophils % (A) 1 %; Eosinophils # (A) 0.1 k/uL (0-0.7); Eosinophils % (A) 1 %; HCT 41.2 % (34.0-46.0); HGB 13.5 gm/dL (11.4-16.0); Lymphocytes # (A) 1.3 k/uL (1.0-4.8); Lymphocytes % (A) 17 %; MCH 29.4 pg (25.0-35.0); MCHC 32.8 g/dL (31.0-37.0); MCV 89.7 fL (80.0-100.0); Mean Platelet Volume 6.5; Monocytes # (A) 0.4 k/uL (0-1.0); Monocytes % (A) 5 %; Neutrophils % (A) 76 %; Platelet Count 393 k/uL (150-450); RDW 13.2 % (11.5-15.5); WBC 7.9 k/uL (3.8-10.6)
[2019-12-15 09:49] LABS: ALT 18 U/L (4-34); AST 25 U/L (14-36); African American GFR (CKD) >90 (>60 ml/min/1.73 sqM); Albumin 4.8 g/dL (3.5-5.0); Alkaline Phosphatase 82 U/L (38-126); Anion Gap 9 mmol/L; Blood Urea Nitrogen 8 mg/dL (7-17); Calcium 9.9 mg/dL (8.4-10.2); Carbon Dioxide 26 mmol/L (22-30); Chloride 103 mmol/L (98-107); Glucose 103 mg/dL (74-99); Non-African American GFR(CKD) >90 (>60 ml/min/1.73 sqM); Potassium 3.8 mmol/L (3.5-5.1); Sodium 138 mmol/L (137-145); Total Bilirubin 0.9 mg/dL (0.2-1.3); Total Protein 8.1 g/dL (6.3-8.2)
[2019-12-15] MEDS ORDERED: OLANZapine 5 MG TAB PO SCH (16:00)
--- NOTE | 2019-12-15 17:59 | HP ---
DATE OF SERVICE: 12/15/2019 HISTORY AND PHYSICAL IDENTIFYING DATA: Patient is a 24-year-old female. She is single. Currently, she had been living with a friend without a stable living situation. She was referred through the emergency room for evaluation. HISTORY OF PRESENTING ILLNESS: The patient was the primary source of information. At times, she gave a disjointed account of her history. She has not had a prior psychiatric hospitalizations. She has not had other mental health interventions other than back in high school when she had some limited counseling. It is noted that she presented to the emergency room with her [id number] son. Apparently, her son had become unresponsive when she came to [facility] for an appointment. According to the petition, the patient was making statements of doing harm to herself and/or her child. She was noted to be very paranoid and thinks people were poisoning her. She apparently had stated she was sleeping in a vehicle. Noted that in the ED protective Services were involved and the son apparently, has been placed with the patient's mother and stepfather. For the patient's part, she says she struggled with depression over the last 3 years. She said she got into depression when she was with her child. Part of the issues at that time was that she had reckless behavior. She noted during that she was drinking. She would do drugs and she was partying. She said she did these things in part to try to plicate her partner who apparently is the father of the child. She said that ultimately she had a and she was extremely distressed at that time worrying that there would be something wrong with the child. She was vague about mental health issues over the last 19 months, that she has been with her child. She suggested that at times she will have manic episodes where her mood goes up. She will have high energy. She will have decreased need for sleep. She believes that she will have these episodes lasting for several days or more. She acknowledges depression as an issue she struggles with quite a bit of the time. She said that her sleep has been poor and mostly she takes "cat naps." She acknowledges paranoia. She described experiences that were hard to decipher, though she made comments such as she believed that she had dug up bodies. She had difficulty relating those kind of ideas to other things that have been happening in her life. 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 She notes long-term use of marijuana and says she has been off marijuana perhaps since October, though she was vague on the particulars of that. She acknowledges that on she did "magic mushrooms" and had smoked two roaches. She acknowledges that she gets paranoid thinking at times and will believe that people are following her. This has been a recent thing she has been experiencing. When asked about hallucinations, it was difficult to get a clear picture. She described some situations where she has very unreal experiences, though some of that she described as waking up in the middle of the night. She notes that she has recently seen some of flashes and lines that go across her vision, which she could not describe in any more detail. She is not currently on any psychotropic medications. She is admitted for further evaluation. SUBSTANCE USE HISTORY: As above. PAST MEDICAL HISTORY: No current or chronic general health complaints. FAMILY AND SOCIAL HISTORY: Patient is the oldest of 6 children in her family. She said her parents when she was about 11. She said out of the 5 siblings, some are with 1 parent and some with the other. She is a high school graduate. 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 She does have an interest of returning to school, possibly in criminal justice. MENTAL STATUS EXAM: Patient was somewhat restless. She gave fair eye contact. She answered some questions directly and appropriately and at other times, she made comments that were quite disconnected. At times, it was difficult to follow her train of thought. She made odd comments that were disconnected from the subject at hand. Her affect was fairly intense. There were times during the interview where she cried and then at times where she smiled. Her mood for the most part was depressed. She appeared to be significantly distressed. She showed thought disorder symptoms with disordered thinking and references to hallucinations and delusional thinking including paranoia. She voiced no thoughts of harm to self or others. She did make an effort to answer formal cognitive questions. She was oriented to circumstances and surroundings. She had basic orientation. It was difficult to assess for memory. Insight and judgment poor. Fund of knowledge average or above average. PHYSICAL EXAM: As per medical consultation. ASSESSMENT: This is a 24-year-old female is diagnosed with acute psychotic episode. It is likely that some aspects of her presentation relate to recent drug use. She gave some possible suggestion of symptoms of bipolar disorder though at best this history is tenuous given that her thought process is so disorganized. There appear to be chronic substance use issues in the picture as well. STRENGTHS: Include [place] intelligence. WEAKNESSES: Includes substance use issues. DIAGNOSES: 1. Acute psychotic episode. 2. Rule out drug induced psychosis. 3. Depression. 4. Rule out bipolar affective disorder. RECOMMENDATIONS: Patient will be admitted for comprehensive medical psychiatric and psychosocial evaluation. We will engage the patient in individual and group therapeutic activities. I will start the patient on Zyprexa 10 mg twice a day. I had an extensive discussion with the patient regarding diagnostic and treatment issues. I reviewed the indication for her antipsychotic. I discussed side effects including metabolic concerns and movement disorder issues. We will focus on stabilization and discharge planning. JANELLE / UMAIR: [id number] / DEYVI
[2019-12-15] MEDS: OLANZapine 10 MG TAB PO SCH (22:08)
--- NOTE | 2019-12-15 22:18 | P.CONS ---
History of Present Illness - Reason for Consult Consult date: 12/15/19 - History of Present Illness The patient was seen with the eight arm operator Patient is a 24-year-old female with a PMH of substance abuse who presented to the emergency room with depression and suicidal ideation. The patient was admitted to the mental health unit where she was seen and evaluated. The patient denied any complaints at time of interview. She reported taking no medications at home. She denied chest pain, shortness of fever, fever, chills, nausea, vomiting, abdominal pain, or diarrhea. Laboratory evaluation was reviewed and was unremarkable. Review of Systems Pertinent positives and negatives as discussed in HPI, a complete review of systems was performed and all other systems are negative. Past Medical History Past Medical History: No Reported History Additional Past Medical History / Comment(s): hydratinitis suppertiva- skin condition History of Any Multi-Drug Resistant Organisms: None Reported Past Surgical History: Section Additional Past Surgical History / Comment(s): foot surgery 2006- bone chip removal Past Anesthesia/Blood Transfusion Reactions: No Reported Reaction Past Psychological History: Anxiety, Depression Smoking Status: Never smoker Past Alcohol Use History: None Reported Past Drug Use History: None Reported - Past Family History Father Family Medical History: Coronary Artery Disease (CAD), Hypertension Mother Family Medical History: Hypertension Additional Family Medical History / Comment(s): anxiety/depression Medications and Allergies Home Medications Medication Instructions Recorded Confirmed Type No Known Home Medications 12/14/19 12/15/19 History Allergies Allergy/AdvReac Type Severity Reaction Status Date / Time Penicillins Allergy Unknown Swelling Verified 12/15/19 04:18 Sulfa (Sulfonamide Allergy Unknown Swelling Verified 12/15/19 04:18 Antibiotics) Physical Exam Vitals: Vital Signs Temp Pulse Pulse Resp BP BP Pulse Ox 12/15/19 17:57 97.3 F L 12/15/19 13:29 97.9 F 12/15/19 02:52 98.0 F 79 16 127/70 97 12/15/19 02:29 98 F 71 18 127/67 97 Intake and Output 12/15/19 12/15/19 12/15/19 06:59 14:59 22:59 Other: Weight 100.953 kg General: non toxic, no distress, appears at stated age, obese Derm: no unusual rashes/lesions no unusual ecchymoses, warm, dry Head: atraumatic, normocephalic, symmetric Eyes: EOMI, no lid lag, anicteric sclera, pupils equal round reactive to light ENT: Nose and ears atraumatic, no thrush, no pharyngeal erythema Neck: No thyromegaly, no cervical lymphadenopathy, trachea midline, supple Mouth: no lip lesion, mucus membranes moist Cardiovascular: S1S2 reg, no murmur, positive posterior tibial pulse bilateral, no edema, capillary refill less than 2 seconds Lungs: CTA bilateral, no rhonchi, no rales , no accessory muscle use Abdominal: soft, nontender to palpation, no guarding, no appreciable organomegaly, normal bowel sounds Ext: no gross muscle atrophy, muscle strength 5 out of 5 in all 4 extremities grossly, no contractures, Neuro: CN II-XI grossly intact, light touch intact all 4 extremities, finger to nose within normal limits, Psych: Alert, oriented, appropriate affect Results CBC & Chem 7: 12/15/19 08:51 12/15/19 08:51 Labs: Abnormal Lab Results - Last 24 Hours (Table) 12/15/19 Range/Units 08:51 Glucose 103 H (74-99) mg/dL Assessment and Plan Plan: Substance abuse (mushrooms) -Advised on the importance of cessation Depression and suicidal ideation -As per psychiatry Thank you for allowing us to participate in the care of this patient. We will follow peripherally. Do not hesitate to contact us with questions. Someone can be reached from the [facility] hospitalist group at all hours of the day at [phone].
[2019-12-16] MEDS: OLANZapine 10 MG TAB PO SCH (09:44)
[2019-12-16] MEDS: OLANZapine 5 MG TAB PO SCH (21:50)
--- NOTE | 2019-12-17 01:05 | PN ---
PROGRESS NOTE DATE OF SERVICE: 12/16/2019. CHIEF COMPLAINT: The patient was disorganized and confused. When she came to a [facility] appointment, she was making statements that someone needed to help her as she might harm her son. She had paranoid delusions. INTERVAL HISTORY: Patient continues to be quite distressed with significant paranoid delusions as the most prominent problem. She was out and about yesterday. She would wander the unit. She did attend one group and was appropriate. She slept fair last night. Today she has been up. She attended groups today. It is noted that in groups, she was observed to having difficult behavior. At one point the following was documented, "the patient presented as confused and when questioned, "I just got really confused. I keep seeing flashes like flashes of light." In another group the following was noted "patient observed to be staring blankly away from peers at times throughout the group." When I talked to the patient today, the nurse was in the room with me. We discussed situations that had been observed where the patient was quite disorganized in her thinking. She was making odd statements to nursing at different times that were for the most part nonsensical. She described a lot of situations where she would feel paranoia and thinking that people may be plotting against her. At one point, she talked about walking in the halls and said it was if people would put thoughts in her head. It was noteworthy that if she talked about these issues it seemed like on the one hand she had some sense that thoughts she was having were unreal then almost at the same moment she would present these ideas as if she was fully engaged in the thinking as something that was unmistakably real. She described a lot of anxiety she was having mainly out of fear about things that she was perceiving. It is noted at times she was seen wandering in the halls reading a book or she would walk continuously and read as she walked. At those times, she seemed to be in a calm, relaxed manner. She tolerates her psychotropic medications. MENTAL STATUS: The patient sat with some restlessness. She gave fairly good eye contact. She answered questions with direct responses. Some of the time her thoughts were clear, at other times she made references that were disorganized or difficult to understand the meaning. Her affect was intense at times. It was noted that she would appear distressed at some point as she talked about issues and then very quickly could seem to shift into a more relaxed manner where she would smile a little bit and seem to be more calm. She for the most part was depressed and at least moderately distressed. She continues to voice a paranoid delusions. She voiced no thoughts of harm. She was oriented to circumstances and surroundings. ASSESSMENT: I will continue the current diagnosis and treatment plan. I will increase Zyprexa to 15 mg twice a day. I reviewed medication issues with the patient. We gave her a lot of assurance about the nature of things that she seems to be struggling with and what things that she could do to manage some of her anxiety as she takes time to have medications better respond to her delusional thinking. We will focus on stabilization and discharge planning. JANELLE / UMAIR: [id number] /
[2019-12-17] MEDS: OLANZapine 5 MG TAB PO SCH (10:06)
--- NOTE | 2019-12-17 12:11 | P.PN ---
Progress Note - Text Progress Note Date: 12/17/19 Interval History: Patient was seen taking part in activities group this afternoon and was direct able and agreeable to speak with content writer in the office. Patient appeared to be anxious at times during the conversation. She spoke briefly about the events leading up to her hospitalization. She claims that she does not know where her son is and what went wrong with him as he went "limp" while he was on her shoulders. She did endorse some paranoia claiming that she may have "messed with a gang" also spoke about possibly that her family is involved in a cult. She states that she is sleeping poorly at night and feels oversedated during the day. She states that she does have hallucinations at time mainly visual. She claims that her mood has been "not good". She states that she has fair appetite and taking her medications. At this time patient denies any suicidal or homical ideations, intent or plan. Patient denies any auditory, visual hallucinations. Mental Status Exam: General Appearance: Patient appears to be overweight, stated age is alert, directable, and attempts to be cooperative. Poor hygiene and grooming. Behavior: Patient is calmly seated without any agitated behavior. Suspicious and bizarre. Speech: Patient's speech is fluent and nonpressured. Mood/Affect: Mood is improving mildly, anxious, affect is congruent and constricted. Suicidality/Homicidality: Patient denies having any suicidal or homicidal ideation intent or plan. Perceptions: Patient endorses visual hallucinations mainly at times. Denies any auditory hallucinations. Though content/process: Patient is endorsing paranoia, is tangential/circumstantial. Bizarre content at times. Memory and concentration: AOX3, grossly intact for the purposes of this session Judgment and insight: Poor Assessment Psychosis unspecified, rule out substance-induced psychotic episode. Anxiety disorder unspecified Cocaine abuse Cannabis use disorder Plan: -Patient continues to meet criteria for inpatient psychiatric admission for symptom stabilization and safety. Patient has not signed adult voluntary form and was placed in patient's chart. Petition and 2 certificates were filed with the courts and currently awaiting deferral and full court hearing date. -Medications: Discontinue Zyprexa and started patient on Risperdal 1 mg twice a day for psychosis. Started patient on Zoloft 50 mg daily for mood/anxiety. -When necessary Ativan and Geodon for agitation/aggression. -NRT -not needed as patient does not smoke -SW on board for discharge planning. Encouraged the patient to participate in milieu. CPS case is currently open and patient's son is with patient's parents.
[2019-12-17] MEDS: SERTRALINE 50 MG TAB PO SCH (12:47)
[2019-12-17] MEDS: risperiDONE 1 MG TAB PO SCH (22:45)
[2019-12-18] MEDS: SERTRALINE 50 MG TAB PO SCH (08:45)
[2019-12-18] MEDS: risperiDONE 1 MG TAB PO SCH ×2 (08:45→20:54)
--- NOTE | 2019-12-18 10:03 | P.PN ---
Progress Note - Text Progress Note Date: 12/18/19 Interval History: Patient was seen sitting in her room on her bed this morning and was directable and agreeable to speak with telegraphic typewriter operator chief in the office. Patient today claims that she is feeling anxious. She claims that her mood has been improving mildly. She claims that she was able to sleep much better last night on the medications and think telegraphic typewriter operator chief for them. She continues to state that she feels she hears voices "sometimes during the day" and states that earlier today she heard a voice tell her to go and kill herself. Patient did not endorse paranoia or any other delusions today. She states that she has been going to some groups however feels nervous in them. Patient appeared to be more goal oriented and conversation and less bizarre today. She states that she has fair appetite and taking her medications. At this time patient denies any suicidal or homical ideations, intent or plan. Patient denies any visual hallucinations. Mental Status Exam: General Appearance: Patient appears to be overweight, stated age is alert, directable, and attempts to be cooperative. Improving hygiene and grooming. Behavior: Patient is calmly seated without any agitated behavior. Suspicious and bizarre, improving mildly. Speech: Patient's speech is fluent and nonpressured. Mood/Affect: Mood is improving mildly, anxious, affect is congruent Suicidality/Homicidality: Patient denies having any suicidal or homicidal ideation intent or plan. Perceptions: Patient endorses visual hallucinations mainly at times. Admits to auditory hallucinations at times. Though content/process: Did not endorse paranoia today, is more goal oriented. Bizarre content at times, improving mildly Memory and concentration: AOX3, grossly intact for the purposes of this session Judgment and insight: Poor Assessment Psychosis unspecified, rule out substance-induced psychotic episode. Anxiety disorder unspecified Cocaine abuse Cannabis use disorder Plan: -Patient continues to meet criteria for inpatient psychiatric admission for symptom stabilization and safety. Patient has not signed adult voluntary form and was placed in patient's chart. Patient's deferral date is set for today. -Medications: Continue with Risperdal 1 mg twice a day for psychosis. Increased Zoloft 100 mg daily for mood/anxiety. Added standing dose of Vistaril 25 mg twice a day for anxiety. -When necessary Ativan and Geodon for agitation/aggression. -NRT -not needed as patient does not smoke -SW on board for discharge planning. Encouraged the patient to participate in milieu. CPS case is currently open and patient's son is with patient's parents. Awaiting patient's deferral and or date.
[2019-12-18] MEDS: hydrOXYzine pamoate 25 MG CAP PO SCH ×2 (10:41→20:53)
[2019-12-19] MEDS: hydrOXYzine pamoate 25 MG CAP PO SCH ×2 (09:12→20:13)
[2019-12-19] MEDS: risperiDONE 1 MG TAB PO SCH (09:12)
[2019-12-19] MEDS: SERTRALINE 100 MG TAB PO SCH (10:41)
--- NOTE | 2019-12-19 10:44 | P.PN ---
Progress Note - Text Progress Note Date: 12/19/19 Interval History: Patient was seen sitting in on group this morning and was directable and agree able to speak with justowriter operator in the office. Patient today claims that she is feeling less anxious and her mood has been improving mildly. Patient was rambling more today and spoke about her brother and several different incidences where she needed to help him. She claims that she is worried about her brother and his well-being. Patient claims that her concentration is "off" and states that she wants to be able to focus more in group. She claims that she is feeling mildly paranoid towards some people on the unit. She also states that she was feeling arm pain today and found it weird that another patient on the unit was also feeling pain in the same arm. She claims that she was able to sleep much better last night. She claims that the voice that she is hearing has been improving mildly. Patient did not endorse any other delusions today. She continues to be tangential/circumstantial. She states that she has fair appetite and taking her medications. At this time patient denies any suicidal or homical ideations, intent or plan. Patient denies any visual hallucinations. Mental Status Exam: General Appearance: Patient appears to be overweight, stated age is alert, directable, and attempts to be cooperative. Improving hygiene and grooming. Behavior: Patient is calmly seated without any agitated behavior. Suspicious and bizarre, improving mildly. Speech: Patient's speech is fluent and nonpressured. Mood/Affect: Mood is improving mildly, anxious, affect is congruent Suicidality/Homicidality: Patient denies having any suicidal or homicidal ideation intent or plan. Perceptions: Patient endorses visual hallucinations mainly at times. Improving auditory hallucinations. Though content/process: Did not endorse paranoia today, is tangential/circumstantial. Bizarre content at times, improving mildly Memory and concentration: AOX3, grossly intact for the purposes of this session Judgment and insight: Poor, improving mildly Assessment Psychosis unspecified, rule out substance-induced psychotic episode. Anxiety disorder unspecified Cocaine abuse Cannabis use disorder Plan: -Patient continues to meet criteria for inpatient psychiatric admission for symptom stabilization and safety. Patient has not signed adult voluntary form and was placed in patient's chart. Ended up deferring court and agreeing to continue with treatment. -Medications: Increased Risperdal 1 mg daily + 2mg HS for psychosis. Continue with Zoloft 100 mg daily for mood/anxiety. Continue with Vistaril 25 mg twice a day for anxiety. -When necessary Ativan and Geodon for agitation/aggression. -NRT -not needed as patient does not smoke -SW on board for discharge planning. Encouraged the patient to participate in milieu. CPS case is currently open and patient's son is with patient's parents. patient deferred court and agreeable to continue on with treatment.
[2019-12-19] MEDS ORDERED: risperiDONE 2 MG TAB PO SCH (21:00)
[2019-12-20] MEDS ORDERED: risperiDONE 1 MG TAB PO SCH (09:00)
[2019-12-20] MEDS: hydrOXYzine pamoate 25 MG CAP PO SCH ×2 (09:50→21:02)
[2019-12-20] MEDS: SERTRALINE 100 MG TAB PO SCH (09:50)
--- NOTE | 2019-12-20 11:20 | P.PN ---
Progress Note - Text Progress Note Date: 12/20/19 Interval History: Patient was seen sitting in on group this morning and was directable and agree able to speak with bond underwriter in the office. Patient today claims that she is feeling less anxious and her mood has been improving mildly. Patient appeared to have an improvement in her thought process and was more goal oriented today. She was also endorsing less paranoia. She claims that she feels that she is not a good mother to her child. Patient was tearful when talking about her decisions to use drugs. She states that she signed a form earlier today to give more rights to her father to take care of her baby. She states that she is trying to use her coping skills to help her on the unit. She claims that she has been writing more and also has been trying to attend groups as much as she can. She claims that she was able to sleep better last night however did have difficulty initiating sleep. Patient does state that her energy level during the day is poor due to taking Risperdal and would prefer to take it all at nighttime. She claims that the voice that she is hearing has been improving mildly. Patient did not endorse any other delusions today. At this time patient denies any suicidal or homical ideations, intent or plan. Patient denies any visual hallucinations. Mental Status Exam: General Appearance: Patient appears to be overweight, stated age is alert, directable, and attempts to be cooperative. Improving hygiene and grooming. Behavior: Patient is calmly seated without any agitated behavior. Speech: Patient's speech is fluent and nonpressured. Mood/Affect: Mood is improving mildly, affect is congruent Suicidality/Homicidality: Patient denies having any suicidal or homicidal ideation intent or plan. Perceptions: Patient endorses visual hallucinations mainly at times. Improving auditory hallucinations. Though content/process: Did not endorse paranoia today, is more goal oriented and more logical. Memory and concentration: AOX3, grossly intact for the purposes of this session Judgment and insight: Poor, improving mildly Assessment Psychosis unspecified, rule out substance-induced psychotic episode. Anxiety disorder unspecified Cocaine abuse Cannabis use disorder Plan: -Patient continues to meet criteria for inpatient psychiatric admission for symptom stabilization and safety. Patient has not signed adult voluntary form and was placed in patient's chart. Ended up deferring court and agreeing to continue with treatment. -Medications: Increased Risperdal 3 mg HS for psychosis. Continue with Zoloft 100 mg daily for mood/anxiety. Continue with Vistaril 25 mg twice a day for anxiety. -When necessary Ativan and Geodon for agitation/aggression. -NRT -not needed as patient does not smoke -SW on board for discharge planning. Encouraged the patient to participate in milieu. CPS case is currently open and patient's son is with patient's parents. patient deferred court and agreeable to continue on with treatment. Patient would like to speak with social science manager today about her plan to either go to [facility] versus rehab.
[2019-12-20] MEDS: risperiDONE 1 MG TAB PO SCH (21:03)
[2019-12-20] MEDS: ACETAMINOPHEN TAB 325 MG TAB PO PRN (21:50)
[2019-12-21] MEDS: SERTRALINE 100 MG TAB PO SCH (08:48)
[2019-12-21] MEDS: hydrOXYzine pamoate 25 MG CAP PO SCH ×3 (08:48→21:25)
--- NOTE | 2019-12-21 13:03 | P.PN ---
Progress Note - Text Progress Note Date: 12/21/19 Interval History: Patient was seen wondering hallways this morning after taking shower and was d irectable and agreeable to speak with typewriter operator automatic in the office. Patient today claims that she is feeling less anxious and her mood has been improving mildly. She continues to however endorse mild paranoia however states that this has been improving significantly. Patient appeared to have an improvement in her thought process and was more goal oriented today. She continues to speak about her discharge planning and also her goals for the future. She states that she is trying to use her coping skills to help her on the unit. She claims that she has been writing more and also has been trying to attend groups as much as she can. She claims that she was able to sleep better last night. Claims of improvement in her energy during the day. She claims that the voice that she is hearing has been improving mildly. Patient did not endorse any other delusions today. At this time patient denies any suicidal or homical ideations, intent or plan. Patient denies any visual hallucinations. Mental Status Exam: General Appearance: Patient appears to be overweight, stated age is alert, directable, and attempts to be cooperative. Improving hygiene and grooming. Behavior: Patient is calmly seated without any agitated behavior. Speech: Patient's speech is fluent and nonpressured. Mood/Affect: Mood is improving mildly, affect is congruent Suicidality/Homicidality: Patient denies having any suicidal or homicidal ideation intent or plan. Perceptions: Patient endorses visual hallucinations mainly at times. Improving auditory hallucinations. Though content/process: Patient is more goal oriented and more logical. Mild paranoia at times Memory and concentration: AOX3, grossly intact for the purposes of this session Judgment and insight: Poor, improving mildly Assessment Psychosis unspecified, rule out substance-induced psychotic episode. Anxiety disorder unspecified Cocaine abuse Cannabis use disorder Plan: -Patient continues to meet criteria for inpatient psychiatric admission for symptom stabilization and safety. Patient has not signed adult voluntary form and was placed in patient's chart. Ended up deferring court and agreeing to continue with treatment. -Medications: Continue with Risperdal 3 mg HS for psychosis. Increased Zoloft 150 mg daily for mood/anxiety. Increase Vistaril 25 mg 3 times a day for anxiety. -When necessary Ativan and Geodon for agitation/aggression. -NRT -not needed as patient does not smoke -SW on board for discharge planning. Encouraged the patient to participate in milieu. CPS case is currently open and patient's son is with patient's parents. patient deferred court and agreeable to continue on with treatment. Patient claims that she would like to go to rehab and will be in the process of calling access line. Likely discharge next week.
[2019-12-21] MEDS: risperiDONE 1 MG TAB PO SCH (20:05)
[2019-12-22] MEDS: hydrOXYzine pamoate 25 MG CAP PO SCH ×3 (08:04→21:19)
--- NOTE | 2019-12-22 09:28 | P.PN ---
Progress Note - Text Progress Note Date: 12/22/19 Interval History: Patient was seen wandering the hallways and was directable and agreeable to speak with caption writer in the office. Patient reports that Zoloft has been making her feel more agitated and sensitive. She stated that she was on the phone with her father and that she was "triggered" and had significant mood swings and urges to harm herself. She is otherwise not reporting any suicidal or homicidal ideation, intention, and/or plan. She is reporting auditory or visual hallucinations. She does state that she feels like people in the color of the closed tend to cause her to relate things that are unrelated. She does endorse mild paranoia but otherwise is not reporting any delusional thought content. She refused her Zoloft this morning. Mental Status Exam: General Appearance: Patient appears to be stated age is alert, directable, and cooperative. Patient is overweight, with good hygiene and grooming. Behavior: Patient is calmly seated without any agitated behavior. Speech: Patient's speech is fluent and nonpressured. Mood/Affect: Mood is improving mildly, affect is congruent with appropriate range Suicidality/Homicidality: Patient denies having any suicidal or homicidal ideation intent or plan. Perceptions: Patient denies any visual hallucinations and denies any auditory hallucinations Though content/process: Patient reports that she feels that people in the color of the closed tend to correlate and has some sort of meaning. Memory and concentration: AOX3, grossly intact for the purposes of this session Judgment and insight: Poor, improving mildly Assessment/Plan: Continue with current diagnosis. Patient continues to meet criteria for inpatient psychiatric admission for symptom stabilization and safety. We will add Risperdal 0.5 mg by mouth every morning to address patient's mood lability and mild paranoia. Monitor for medication compliance and for any psychotropic medication side effects. Will continue to monitor ongoing response to treatment. Encouraged participation in milieu.
[2019-12-22] MEDS: SERTRALINE 100 MG TAB PO SCH (09:52)
[2019-12-22] MEDS: risperiDONE 0.5 MG TAB PO SCH (09:52)
[2019-12-22] MEDS: ACETAMINOPHEN TAB 325 MG TAB PO PRN (15:24)
[2019-12-22] MEDS: risperiDONE 1 MG TAB PO SCH (21:18)
[2019-12-23] MEDS: hydrOXYzine pamoate 25 MG CAP PO SCH ×3 (08:17→21:00)
[2019-12-23] MEDS: risperiDONE 0.5 MG TAB PO SCH (08:18)
[2019-12-23] MEDS: SERTRALINE 100 MG TAB PO SCH ×2 (08:18→08:26)
[2019-12-23] MEDS: ACETAMINOPHEN TAB 325 MG TAB PO PRN (08:59)
--- NOTE | 2019-12-23 09:26 | P.PN ---
Progress Note - Text Progress Note Date: 12/23/19 Interval History: Patient was seen wandering the hallways and was directable and agreeable to speak with video game script writer in the office. Patient reports that she feels better today. She states that her mood swings have decreased significantly despite taking Zoloft this morning. She states that currently she feels more melancholy. She attributes this to thinking about her child. She is questioning whether she will be a good mother to her child. She is otherwise not endorsing any suicidal or homicidal ideation, intention, and/or plan. She reports no paranoia or delusions. She does report some visual disturbances in the form of flashing lights but states that this is likely secondary to her history of drug use. She is not reporting any auditory hallucinations. She has been in adherent with her medications and denies any side effects at this time. She reports that she is expressing her menstrual period at this time and that this might have contributed to her irritability and anger yesterday. Mental Status Exam: General Appearance: Patient appears to be stated age is alert, directable, and cooperative. Patient is overweight, with good hygiene and grooming. Behavior: Patient is calmly seated without any agitated behavior. Speech: Patient's speech is fluent and nonpressured. Mood/Affect: Mood is improving mildly, affect is congruent with appropriate range Suicidality/Homicidality: Patient denies having any suicidal or homicidal ideation intent or plan. Perceptions: She reports some visual disturbances in the form of flashing lights. She denies any auditory hallucinations. Though content/process: Linear, logical, with no evidence of paranoia or other delusions at this time. Memory and concentration: AOX3, grossly intact for the purposes of this session Judgment and insight: Poor, improving mildly Assessment/Plan: Continue with current diagnosis. Patient continues to meet criteria for inpatient psychiatric admission for symptom stabilization and safety. We'll continue the current psychotropic treatment regimen at this time. Monitor for medication compliance and for any psychotropic medication side effects. Will continue to monitor ongoing response to treatment. Encouraged participation in milieu.
[2019-12-23] MEDS: risperiDONE 1 MG TAB PO SCH (20:59)
[2019-12-23 22:14] LABS: Appearance,Urine Clear (Clear); Bilirubin,Urine Negative (Negative); Blood,Urine Large (Negative); Color,Urine Light Red; Glucose,Urine (UA) Negative (Negative); Ketones,Urine Negative (Negative); Leukocyte Esterase,Urine Small (Negative); Mucus,Urine Occasional /hpf; Nitrite,Urine Negative (Negative); Protein,Urine 1+ (Negative); RBC,Urine >182 /hpf (0-5); Squamous Epithelial Cell,Urine 1 /hpf (0-4); Urobilinogen,Urine <2.0 mg/dL (<2.0); WBC,Urine 3 /hpf (0-5)
[2019-12-23 22:27] LABS: Amphetamine Screen,Urine Not Detected (NotDetected); Barbiturate Screen,Urine Not Detected (NotDetected); Benzodiazepines Screen,Urine Not Detected (NotDetected); Cocaine Screen,Urine Not Detected (NotDetected); Methadone Screen, Urine Not Detected (NotDetected); Opiate Screen,Urine Not Detected (NotDetected); Oxycodone Screen, Urine Not Detected (NotDetected); Phencyclidine Screen,Urine Not Detected (NotDetected); Tricyclic Antidepressant,Urine Not Detected (NotDetected); Urn Cannabinoid Scrn Detected (NotDetected)
[2019-12-24] MEDS: SERTRALINE 100 MG TAB PO SCH (08:55)
[2019-12-24] MEDS: hydrOXYzine pamoate 25 MG CAP PO SCH ×3 (08:55→21:53)
[2019-12-24] MEDS: risperiDONE 0.5 MG TAB PO SCH (08:55)
[2019-12-24] MEDS ORDERED: risperiDONE 0.5 MG TAB PO STA (10:12)
--- NOTE | 2019-12-24 10:39 | P.PN ---
Progress Note - Text Progress Note Date: 12/24/19 Interval History: Patient was seen taking part in group this morning and was directable and agre eable to speak with freelance copywriter in the office. Patient today claims that she is feeling less anxious since being on the Vistaril and think freelance copywriter for. She was tearful at times as she was just discussing in group about her son and not being able to see him. She also claims that she is worried about his safety and also how his father will portray her to her son and claims that "he's can call me a drug addict and my son does not like me." She states that she does not like being on the Zoloft and refused it this morning. She claims that she is feeling "like a zombie" on it. She continues to however endorse mild paranoia which appears to be chronic. She states that she overheard some concerning things from a nurse however was not able to elaborate monitored. Patient appeared to have an improvement in her thought process and was more goal oriented today. She states that she is trying to use her coping skills to help her on the unit. She claims that she has been writing more and also has been trying to attend groups as much as she can. She claims that she was able to sleep better last night. Patient did not endorse any other delusions today. At this time patient denies any suicidal or homical ideations, intent or plan. Patient denies any visual hallucinations or auditory hallucinations. Mental Status Exam: General Appearance: Patient appears to be overweight, stated age is alert, directable, and attempts to be cooperative. Improving hygiene and grooming. Behavior: Patient is calmly seated without any agitated behavior. Tearful at times when speaking about her son. Speech: Patient's speech is fluent and nonpressured. Mood/Affect: Mood is improving mildly, affect is congruent Suicidality/Homicidality: Patient denies having any suicidal or homicidal ideation intent or plan. Perceptions: Patient endorses visual hallucinations mainly at times. Denies any auditory hallucinations. Though content/process: Patient is more goal oriented and more logical. Mild paranoia at times, probably mildly Memory and concentration: AOX3, grossly intact for the purposes of this session Judgment and insight: Poor, improving mildly Assessment Psychosis unspecified, rule out substance-induced psychotic episode. Anxiety disorder unspecified Cocaine abuse Cannabis use disorder Plan: -Patient continues to meet criteria for inpatient psychiatric admission for symptom stabilization and safety. Patient has not signed adult voluntary form and was placed in patient's chart. Ended up deferring court and agreeing to continue with treatment. -Medications: Increased Risperdal 3 mg HS + 1mg daily for psychosis. Discontinued Zoloft due to poor tolerability. Continue with Vistaril 25 mg 3 times a day for anxiety. -When necessary Ativan and Geodon for agitation/aggression. -NRT -not needed as patient does not smoke -SW on board for discharge planning. Encouraged the patient to participate in milieu. CPS case is currently open and patient's son is with patient's parents. patient deferred court and agreeable to continue on with treatment. Patient claims that she would like to go to rehab, [place] intake scheduled for .
[2019-12-24] MEDS: ACETAMINOPHEN TAB 325 MG TAB PO PRN (13:17)
[2019-12-24] MEDS: risperiDONE 1 MG TAB PO SCH (21:53)
[2019-12-25 06:46] VITALS: RESP 16
[2019-12-25] MEDS ORDERED: risperiDONE 1 MG TAB PO SCH (09:00)
[2019-12-25] MEDS: hydrOXYzine pamoate 25 MG CAP PO SCH ×3 (09:20→19:59)
[2019-12-25] MEDS: NITROFURANTOIN MONOHYD/M-CRYST 100 MG CAP PO SCH ×2 (09:52→19:59)
--- NOTE | 2019-12-25 11:12 | P.PN ---
Progress Note - Text Progress Note Date: 12/25/19 Interval History: Patient was seen in her room this morning and was directable and agreeable to speak with senior medical writer in the office. Patient appeared to be more irritable this morning and much more argumentative with senior medical writer. Patient was focused on discharge and continues to state that she wants to speak to her locomotive operator helper. She demanded to have another doctor. Patient was also fairly hostile and claimed that she is in a "bitchy mood" today. She claims that she does not need medications today. She continues to however endorse mild paranoia and accused her father of putting "bullshit" on the petition "to get me here". Patient appeared to have an improvement in her thought process and was more goal oriented today. She claims that she was able to sleep fairly last night. Patient did not endorse any other delusions today. At this time patient denies any suicidal or homical ideations, intent or plan. Patient denies any visual hallucinations or auditory hallucinations. Mental Status Exam: General Appearance: Patient appears to be overweight, stated age is alert, argumentative and hostile with senior medical writer. Improving hygiene and grooming. Behavior: Patient is calmly seated without any agitated behavior. Aggressive and hostile with senior medical writer today. Speech: Patient's speech is fluent and nonpressured. Mood/Affect: Mood is "bitchy", affect is congruent Suicidality/Homicidality: Patient denies having any suicidal or homicidal ideation intent or plan. Perceptions: Patient endorses visual hallucinations mainly at times. Denies any auditory hallucinations. Though content/process: Patient is more goal oriented and more logical. paranoia at times, argumentative and hostile. Demanding discharge. Memory and concentration: AOX3, grossly intact for the purposes of this session Judgment and insight: Poor, improving mildly Assessment Psychosis unspecified, rule out substance-induced psychotic episode. Anxiety disorder unspecified Cocaine abuse Cannabis use disorder Plan: -Patient continues to meet criteria for inpatient psychiatric admission for symptom stabilization and safety. Patient has not signed adult voluntary form and was placed in patient's chart. Ended up deferring court and agreeing to continue with treatment. -Medications: Increased Risperdal 3 mg HS + 2 mg daily for psychosis. resumed Zoloft 50mg daily for mood/anxiety. Continue with Vistaril 25 mg 3 times a day for anxiety. -When necessary Ativan and Geodon for agitation/aggression. -NRT -not needed as patient does not smoke -SW on board for discharge planning. Encouraged the patient to participate in milieu. CPS case is currently open and patient's son is with patient's parents. patient deferred court and agreeable to continue on with treatment. Patient claims that she would like to go to rehab, [place] intake scheduled for morning.
[2019-12-25] MEDS: SERTRALINE 50 MG TAB PO SCH ×2 (11:30→21:43)
[2019-12-25 15:34] VITALS: BMI 36.4
[2019-12-25] MEDS: risperiDONE 1 MG TAB PO SCH (19:59)
[2019-12-25] MEDS: ACETAMINOPHEN TAB 325 MG TAB PO PRN (19:59)
[2019-12-26 06:25] VITALS: BP 113/52; PULSE 90
[2019-12-26] MEDS: ACETAMINOPHEN TAB 325 MG TAB PO PRN (07:18)
[2019-12-26] MEDS: hydrOXYzine pamoate 25 MG CAP PO SCH (08:38)
[2019-12-26] MEDS: NITROFURANTOIN MONOHYD/M-CRYST 100 MG CAP PO SCH (08:39)
[2019-12-26] MEDS ORDERED: risperiDONE 2 MG TAB PO SCH (09:00)
[2019-12-26] MEDS: SERTRALINE 50 MG TAB PO SCH (09:31)
--- NOTE | 2019-12-26 10:10 | P.DS ---
Providers Date of admission: 12/15/19 02:02 Expected date of discharge: 12/26/19 Attending physician: Sterling Rivas MD Consults: 12/15/19 02:14 Consult Physician Routine Consulting Provider: Espinoza Willard Consult Reason/Comments: Medical Management Do you want consulting provider notified?: Yes Primary care physician: Stated None - Discharge Diagnosis(es) (1) Unspecified psychosis Current Visit: Yes Status: Acute Priority: High (2) Anxiety disorder Current Visit: Yes Status: Acute Priority: Medium (3) Cocaine abuse Current Visit: Yes Status: Acute Priority: Medium (4) Cannabis use disorder, mild, abuse Current Visit: Yes Status: Acute Priority: Medium (5) Hallucinogen abuse Current Visit: Yes Status: Acute Priority: Medium Hospital Course: Admission HPI: Admission and was completed by Dr. Garzon "patient is a 24-year-old female who is single currently living with a friend without a stable living situation. She was referred through the emergency room for evaluation. The patient was the primary source of information. At times she gave a disjointed account of her history. She has not had a prior psychiatric hospitalization. She has not had other mental health interventions other than back in high school when she had some limited counseling. It is noted that she presented to the emergency room with her [id number] son. Apparently her son became unresponsive when she came to [facility] for an appointment. According to the petition the patient was making statements of doing harm to herself and/or her child. She was noted to be very paranoid and thinks people were poisoning her. She apparently had stated she was sleeping in a vehicle. Noted that in the ED protective services were involved and the son apparently has been placed with the patient's mother and stepfather. Before the patient's part, she says she struggled with depression for over the last 3 years. She said she got into depression when she was with her child. Part of the issue at that time was that she had reckless behavior. She noted during that she was drinking. She would do drugs and she was partying. She said she did these things in part to try to implicate her partner who apparently is the father of the child. She said that ultimately she had a and she was extremely distressed at that time worrying that there would be something wrong with the child. She was vague about mental health issues over the last 19 months, that she has been with her child. She suggested that at times she will have manic episodes where her mood goes up. She will have high energy. She will have decreased need for sleep. She believes that she will have these episodes lasting for several days or more. She acknowledges depression is an issue she struggles with quite a bit of time she said that her sleep has been poor and mostly she takes "catnaps". She acknowledges paranoia. She described experiences that are hard to decipher though she made comments such as she believes that she had dug up bodies. She had difficulty relating to his kind of ideas to other things that have been happening in her life. She notes that in October she had a 2 week period where she was doing "athletic shoe designer drugs". She says she has been off those drugs since then. She notes long-term use of marijuana and says she has been off marijuana perhaps since October. Though she was vague on the particulars of that. She acknowledges that on she did "magic mushrooms". And she also admitted to smoking 2 roaches. She acknowledges that she gets paranoid thinking at times and she will believe that people are following her. This has been a recent thing she has been experiencing. When asked about hallucinations, it was difficult to get a clear picture. She described some situations where she was very unreal experiences though some of that she described as waking up in the middle the night. She notes that she has recently seen some flashes of lines that go across her vision, which she could not describe in any more detail. She is not currently on any psychotropic medications. She is admitted for further evaluation." Hospital course: Upon admission to the unit patient was initially bizarre, hallucinating, paranoid anxious and depressed. Patient was however admitted involuntarily and was agreeable to take commence treatment and take medications and ended up signing a deferral with the assistant district attorney. Patient got along well with other patients on the unit and followed unit protocol. Patient was compliant with the medications and denied any side effects throughout hospital course. Patient was started on Risperdal and increased to a dose of 3 mg daily at bedtime +2 mg daily for psychosis. Patient was also started on Zoloft and titrated up to a dose of 150 mg daily however patient claimed that she was having side effects of feeling "like a zombie" and the dose was reduced down to 50 mg daily at bedtime. Patient was also placed on Vistaril 25 mg 3 times a day for anxiety.. Patient spoke of her stressors and engaged in therapy both group and individual. Patient was also seen by medical team for history and physical exam. Patient was found to have a UTI and placed on Macrobid for 4 days. Throughout the course of the hospitalization patient gradually improved with regards to mood, anxiety, psychosis, paranoia and hallucinations, sleep and became more future oriented with improvement in her insight and judgment. On the day of discharge patient denied any suicidal or homicidal ideations intent or plan denied any auditory or visual hallucinations. Patient endorsed wanting to live for her sobriety and also for her son. The patient denied any access to guns or weapons. Patient denied any paranoia and did not endorse any delusions. Patient does have a significant history of substance abuse and was counseled on abstaining from all substances including alcohol and marijuana. Patient was offered inpatient rehab and elected to go to [facility]. [facility] intake is set for 12/27/2019 and will stay with her friend for 1 night prior to going to rehab the next day. Patient was also counseled on the medications and need for regular compliance and was encouraged to follow-up with their outpatient appointment for mental health and also for primary care. Prior to discharge a family meeting will be arranged by social economist to answer any questions and ensure safety upon discharge. Mental status exam: General Appearance: Patient appears to be overweight, stated age is alert, pleasant, and cooperative. Patient is in no acute distress and has improved hygiene and grooming Behavior: Patient is calmly seated without any agitated behavior. Speech: Patient's speech is fluent and nonpressured. Mood/Affect: Patient reports their mood is "good", affect is congruent Suicidality/Homicidality: Patient denies having any suicidal or homicidal ideation intent or plan. Perceptions: Patient denies any auditory or visual hallucinations. Though content/process: There is no evidence of any delusional thought content and thought process is linear and goal-directed. more future oriented Memory and concentration: AOX3, grossly intact for the purposes of this session. Can spell "WORLD" backwards correctly. Judgment and insight: chronically poor, however has improved with guarded prognosis Impression: Psychosis unspecified, rule out secondary to polysubstance abuse Anxiety disorder unspecified Cannabis use disorder Cocaine abuse Hallucinogen abuse Plan: -Continue with discharge today as patient has improved and stabilized psychiatrically and is not currently an imminent threat to herself and/or others. Patient will remain at chronically elevated risk for harm to self and/or others due to her polysubstance abuse. -Continue medications: Continue with Risperdal 3 mg daily at bedtime +2 mg daily for psychosis, Zoloft 50 mg daily for mood/anxiety, Vistaril 25 mg 3 times a day for anxiety. -Patient was counseled on the need for medication compliance and appropriate f ollow-up at mental health and also primary care for medical issues. Patient verbalized understanding and agreed. -Social work to arrange for and conduct family meeting to ensure safety upon discharge and answer any questions/concerns. Social work also to arrange for patients follow up appointments for psychiatric care along with follow up with primary care provider. Patient [facility] intake is set for 12/27/2019 and will stay with her friend for 1 night prior to going to rehab the next day. -There is currently a CPS case open for her baby son who is currently in the care of patient's father. -Patient counseled on abstaining from recreational drugs and marijuana and alcohol. Was informed/educated on the adverse effects on their physical and mental health. Patient verbally agreed and understood. -Patient was instructed to return to the hospital or seek immediate medical care if their psychiatric or medical symptoms do worsen or reoccur. Allergies Allergy/AdvReac Type Severity Reaction Status Date / Time Penicillins Allergy Unknown Swelling Verified 12/15/19 04:18 Sulfa (Sulfonamide Allergy Unknown Swelling Verified 12/15/19 04:18 Antibiotics) Laboratory Results WBC 7.9 k/uL (3.8-10.6) 12/15/19 08:51 RBC 4.60 m/uL (3.80-5.40) 12/15/19 08:51 Hgb 13.5 gm/dL (11.4-16.0) 12/15/19 08:51 Hct 41.2 % (34.0-46.0) 12/15/19 08:51 MCV 89.7 fL (80.0-100.0) 12/15/19 08:51 MCH 29.4 pg (25.0-35.0) 12/15/19 08:51 MCHC 32.8 g/dL (31.0-37.0) 12/15/19 08:51 RDW 13.2 % (11.5-15.5) 12/15/19 08:51 Plt Count 393 k/uL (150-450) 12/15/19 08:51 Neutrophils % 76 % 12/15/19 08:51 Lymphocytes % 17 % 12/15/19 08:51 Monocytes % 5 % 12/15/19 08:51 Eosinophils % 1 % 12/15/19 08:51 Basophils % 1 % 12/15/19 08:51 Neutrophils # 6.0 k/uL (1.3-7.7) 12/15/19 08:51 Lymphocytes # 1.3 k/uL (1.0-4.8) 12/15/19 08:51 Monocytes # 0.4 k/uL (0-1.0) 12/15/19 08:51 Eosinophils # 0.1 k/uL (0-0.7) 12/15/19 08:51 Basophils # 0.0 k/uL (0-0.2) 12/15/19 08:51 Sodium 138 mmol/L (137-145) 12/15/19 08:51 Potassium 3.8 mmol/L (3.5-5.1) 12/15/19 08:51 Chloride 103 mmol/L (98-107) 12/15/19 08:51 Carbon Dioxide 26 mmol/L (22-30) 12/15/19 08:51 Anion Gap 9 mmol/L 12/15/19 08:51 BUN 8 mg/dL (7-17) 12/15/19 08:51 Creatinine 0.64 mg/dL (0.52-1.04) 12/15/19 08:51 Est GFR (CKD-EPI)AfAm >90 (>60 ml/min/1.73 sqM) 12/15/19 08:51 Est GFR (CKD-EPI)NonAf >90 (>60 ml/min/1.73 sqM) 12/15/19 08:51 Glucose 103 mg/dL (74-99) H 12/15/19 08:51 Calcium 9.9 mg/dL (8.4-10.2) 12/15/19 08:51 Total Bilirubin 0.9 mg/dL (0.2-1.3) 12/15/19 08:51 AST 25 U/L (14-36) 12/15/19 08:51 ALT 18 U/L (4-34) 12/15/19 08:51 Alkaline Phosphatase 82 U/L (38-126) 12/15/19 08:51 Total Protein 8.1 g/dL (6.3-8.2) 12/15/19 08:51 Albumin 4.8 g/dL (3.5-5.0) 12/15/19 08:51 TSH 0.959 mIU/L (0.465-4.680) 12/15/19 08:51 Urine Color Light Red 12/23/19 21:30 Urine Appearance Clear (Clear) 12/23/19 21:30 Urine pH 6.0 (5.0-8.0) 12/23/19 21:30 Ur Specific [place] 1.020 (1.001-1.035) 12/23/19 21:30 Urine Protein 1+ (Negative) H 12/23/19 21:30 Urine Glucose (UA) Negative (Negative) 12/23/19 21:30 Urine Ketones Negative (Negative) 12/23/19 21:30 Urine Blood Large (Negative) H 12/23/19 21:30 Urine Nitrite Negative (Negative) 12/23/19 21:30 Urine Bilirubin Negative (Negative) 12/23/19 21:30 Urine Urobilinogen <2.0 mg/dL (<2.0) 12/23/19 21:30 Ur Leukocyte Esterase Small (Negative) H 12/23/19 21:30 Urine RBC >182 /hpf (0-5) H 12/23/19 21:30 Urine WBC 3 /hpf (0-5) 12/23/19 21:30 Ur Squamous Epith Cells 1 /hpf (0-4) 12/23/19 21:30 Urine Mucus Occasional /hpf (None) H 12/23/19 21:30 Urine Opiates Screen Not Detected (NotDetected) 12/23/19 21:30 Ur Oxycodone Screen Not Detected (NotDetected) 12/23/19 21:30 Urine Methadone Screen Not Detected (NotDetected) 12/23/19 21:30 Ur Propoxyphene Screen Not Detected (NotDetected) 12/23/19 21:30 Ur Barbiturates Screen Not Detected (NotDetected) 12/23/19 21:30 U Tricyclic Antidepress Not Detected (NotDetected) 12/23/19 21:30 Ur Phencyclidine Scrn Not Detected (NotDetected) 12/23/19 21:30 Ur Amphetamines Screen Not Detected (NotDetected) 12/23/19 21:30 U Methamphetamines Scrn Not Detected (NotDetected) 12/23/19 21:30 U Benzodiazepines Scrn Not Detected (NotDetected) 12/23/19 21:30 Urine Cocaine Screen Not Detected (NotDetected) 12/23/19 21:30 U Marijuana (THC) Screen Detected (NotDetected) H 12/23/19 21:30 Coronavirus (PCR) Not Detected (Not Detectd) 12/18/19 12:20 Vital Signs Temp 97.6 F 12/26/19 06:24 Pulse 90 12/26/19 06:24 Resp 16 12/26/19 06:24 BP 113/52 12/26/19 06:24 Pulse Ox 99 12/26/19 06:24 Intake & Output 12/25/19 12/26/19 12/26/19 18:59 06:59 18:59 Weight 102.4 kg Patient Condition at Discharge: Stable Plan - Discharge Summary New Discharge Prescriptions: New Ibuprofen 600 mg PO Q8H PRN 14 Days tab PRN Reason: Pain Nitrofurantoin Monohyd/M-Cryst [Macrobid] 100 mg PO BID 4 Days cap risperiDONE [RisperDAL] 3 mg PO HS 30 Days tab risperiDONE [RisperDAL] 2 mg PO DAILY 30 Days tab hydrOXYzine pamoate [Vistaril] 25 mg PO TID PRN 30 Days cap PRN Reason: Anxiety Sertraline [Zoloft] 50 mg PO HS 30 Days tab Discharge Medication List Ibuprofen 600 mg PO Q8H PRN 14 Days tab 12/26/19 [Rx] Nitrofurantoin Monohyd/M-Cryst [Macrobid] 100 mg PO BID 4 Days cap 12/26/19 [Rx] Sertraline [Zoloft] 50 mg PO HS 30 Days tab 12/26/19 [Rx] hydrOXYzine pamoate [Vistaril] 25 mg PO TID PRN 30 Days cap 12/26/19 [Rx] risperiDONE [RisperDAL] 2 mg PO DAILY 30 Days tab 12/26/19 [Rx] risperiDONE [RisperDAL] 3 mg PO HS 30 Days tab 12/26/19 [Rx] Follow up Appointment(s)/Referral(s): [facility] [Outside] - 12/27/19 9:30 am None,Stated [Primary Care Provider] - 1-2 days Activity/Diet/Wound Care/Special Instructions: Activity and diet as tolerated. Avoid the use of street drugs and alcohol. Take all medications as prescribed. When you are in need of refills on your medications please contact your medical provider and/or outpatient psychiatrist to have this done. Please go to scheduled outpatient appointment for aftercare treatment. If symptoms return or become worse, call the crisis line at and/or go to the nearest emergency room for evaluation. Discharge Disposition: OTHER INSTITUTION NOT DEFINED
[2019-12-26 13:17] VITALS: TEMP 97.4
== END 2019-12-26 14:37 | DRG 897 ==
LOC: EC 17:33 → 3MHU 12-15 02:02
PROVIDERS: ADMIT Psychiatry & Neurology Psychiatry; ATTEND Psychiatry & Neurology Psychiatry
DX: F16.159 Hallucinogen abuse with hallucinogen-induced psychotic disorder, unspecified (principal); N39.0 Urinary tract infection, site not specified; R45.851 Suicidal ideations; F14.159 Cocaine abuse with cocaine-induced psychotic disorder, unspecified; F12.159 Cannabis abuse with psychotic disorder, unspecified; F32.9 Major depressive disorder, single episode, unspecified; F41.9 Anxiety disorder, unspecified; Z20.828 Contact with and (suspected) exposure to other viral communicable diseases; Z79.899 Other long term (current) drug therapy; Z82.49 Family history of ischemic heart disease and other diseases of the circulatory system; Z81.8 Family history of other mental and behavioral disorders; T43.225A Adverse effect of selective serotonin reuptake inhibitors, initial encounter; Z88.0 Allergy status to penicillin; Z88.2 Allergy status to sulfonamides
CPT/HCPCS: 80053; 80306; 81001; 82075; 84443; 85025; 87635; 99285

== ENCOUNTER 2020-11-19 19:44 | Emergency (ER) | payer MEDICAID, OTHER ==
[2020-11-19 20:34] VITALS: BP 109/79; PULSE 84; RESP 20; TEMP 99.1
--- NOTE | 2020-11-19 21:50 | ED ---
General Adult HPI - General Chief complaint: Upper Respiratory Infection Stated complaint: Fever Time Seen by Provider: 11/19/20 21:25 Source: patient Mode of arrival: ambulatory Limitations: no limitations - History of Present Illness Initial comments: 24-year-old female presents to the emergency room for a chief complaint of not feeling well. Patient states she has had a cough for 4 days now. She had a negative coronavirus test on Tuesday. However she started to develop fevers body aches and chills so presented to the emergency room. She denies shortness of breath. Patient is concerned she has coronavirus. She is not vaccinated.Patient has no other complaints at this time including shortness of breath, chest pain, abdominal pain, nausea or vomiting, headache, or visual changes. - Related Data Previous Rx's Medication Instructions Recorded Ibuprofen 600 mg PO Q8H PRN 14 Days tab 12/26/19 Nitrofurantoin Monohyd/M-Cryst 100 mg PO BID 4 Days cap 12/26/19 [Macrobid] Sertraline [Zoloft] 50 mg PO HS 30 Days tab 12/26/19 hydrOXYzine pamoate [Vistaril] 25 mg PO TID PRN 30 Days cap 12/26/19 risperiDONE [RisperDAL] 2 mg PO DAILY 30 Days tab 12/26/19 risperiDONE [RisperDAL] 3 mg PO HS 30 Days tab 12/26/19 Allergies Allergy/AdvReac Type Severity Reaction Status Date / Time Penicillins Allergy Unknown Swelling Verified 11/19/20 20:30 Sulfa (Sulfonamide Allergy Unknown Swelling Verified 11/19/20 20:30 Antibiotics) Review of Systems ROS Statement: Those systems with pertinent positive or pertinent negative responses have been documented in the HPI. ROS Other: All systems not noted in ROS Statement are negative. Past Medical History Past Medical History: No Reported History Additional Past Medical History / Comment(s): hydratinitis suppertiva- skin condition History of Any Multi-Drug Resistant Organisms: None Reported Past Surgical History: Section Additional Past Surgical History / Comment(s): foot surgery 2006- bone chip removal Past Anesthesia/Blood Transfusion Reactions: No Reported Reaction Past Psychological History: Anxiety, Depression Smoking Status: Never smoker Past Alcohol Use History: Rare Past Drug Use History: Marijuana - Past Family History Father Family Medical History: Coronary Artery Disease (CAD), Hypertension Mother Family Medical History: Hypertension Additional Family Medical History / Comment(s): anxiety/depression General Exam Limitations: no limitations General appearance: alert, in no apparent distress Head exam: Present: atraumatic Eye exam: Present: normal appearance, PERRL, EOMI. Absent: scleral icterus, conjunctival injection ENT exam: Present: normal exam, mucous membranes moist Neck exam: Present: normal inspection, full ROM. Absent: tenderness Respiratory exam: Present: normal lung sounds bilaterally. Absent: respiratory distress, wheezes Cardiovascular Exam: Present: regular rate, normal rhythm, normal heart sounds GI/Abdominal exam: Present: soft, normal bowel sounds. Absent: distended, tenderness Neurological exam: Present: alert Course Vital Signs 11/19/20 20:31 Temperature 99.1 F Pulse Rate 84 Respiratory 20 Rate Blood Pressure 109/79 O2 Sat by Pulse 96 Oximetry Medical Decision Making - Medical Decision Making Vitals are stable. Patient is well-appearing. Patient did test positive for Stewart virus. I did have a lengthy discussion with patient about antibody infusion. After discussing this patient was still hesitant and requested to view an information packet on it. I did give her the information and after reading it has decided not to have the antibody infusion. States she is a body to do what it is supposed to. Patient is aware that if she changes her mind any seat and within 10 days of symptom onset. Patient will be discharged home with a work note. She will return here for any worsening symptoms or - Lab Data Lab Results 11/19/20 Range/Units 20:34 Coronavirus (PCR) Detected A (Not Detectd) Disposition Clinical Impression: COVID-19 Disposition: HOME SELF-CARE Condition: Good Instructions (If sedation given, give patient instructions): Coronavirus Disease 2019 (COVID-19) Additional Instructions: Please follow up with primary care in 1-2 days. Return to the ER for any worsening symptoms. Is patient prescribed a controlled substance at d/c from ED?: No Referrals: Becky Vargas MD [Primary Care Provider] - 1-2 days Time of Disposition: 21:59
== END 2020-11-19 22:05 | disposition home or self-care (01) ==
LOC: EC 19:44
DX: U07.1 COVID-19 (principal); F32.9 Major depressive disorder, single episode, unspecified; F41.9 Anxiety disorder, unspecified; F12.90 Cannabis use, unspecified, uncomplicated
CPT/HCPCS: 87635; 99283

== ENCOUNTER 2022-01-12 12:01 | Emergency (ER) | payer OTHER ==
[2022-01-12 12:54] VITALS: RESP 16
--- NOTE | 2022-01-12 14:16 | CT ---
EXAMINATION TYPE: CT brain cspine wo con DATE OF EXAM: 01/12/2022 COMPARISON: None HISTORY: Seizure CT DLP: 1509.6 mGycm Automated exposure control for dose reduction was used. TECHNIQUE: CT scan of the head and cervical spine are performed without contrast. FINDINGS: Artifact in the posterior fossa noted. Limits evaluation. No evidence of acute intracrani al hemorrhage or mass effect. No midline shift. Calvarium intact. Assessment is limited due to motion artifact. Grossly the osseous structures are intact with no acute fracture or dislocation. Vertebral body height and disc interspace is maintained. Assessment of spin al canal nondiagnostic due to artifact resolution. However findings are suspicious for a right parace ntral disc herniation or spurring C6-C7. Cannot exclude cord contact. Recommend follow-up MRI. IMPRESSION: 1. There is no acute fracture or dislocation evident in the cervical spine. Findings suggestive of ri ght paracentral disc spurring or herniation C6-C7 for which follow-up MRI recommended. 2. No acute intracranial hemorrhage, mass effect, or midline shift is seen.
[2022-01-12] MEDS ORDERED: SODIUM CHLORIDE 0.9% 500 ML 500 ML IV STA (16:06)
--- NOTE | 2022-01-12 16:16 | ED ---
Seizure HPI - General Chief Complaint: Seizure Stated Complaint: seizure Time Seen by Provider: 01/12/22 15:50 Source: patient Mode of arrival: ambulatory Limitations: no limitations - History of Present Illness Initial Comments: This patient is a 26-year-old woman who presents stating that she had a seizure this morning around 11 AM. The patient states that she had been at home and was seated when she felt like she was going to pass out. She states that she then woke up while later and was told that she had had some shaking and she also had vomited. Patient denies any trauma stating that she was artery seated. She states states that she feels back to normal now just a little bit tired. Complaint: seizure Onset/Timin -: hour(s) Description of Episode: loss of consciousness, post-event confusion -: second(s) Witnessed: yes - by bystander Seizure History: none Place: home Possible Precipitating Event: none Associated Symptoms: denies other symptoms Treatments Prior to Arrival: none - Related Data Home Medications Medication Instructions Recorded Confirmed Medroxyprogesterone Acetate 150 mg IM Q90D 02/23/21 02/23/21 [Depo-Provera] Previous Rx's Medication Instructions Recorded Benztropine Mesylate [Cogentin] 0.5 mg PO BID 30 Days tab 03/26/21 Famotidine [Pepcid] 20 mg PO BID 30 Days tab 03/26/21 Melatonin 6 mg PO HS PRN 30 Days tablet 03/26/21 Paliperidone IM [Invega Sustenna] 156 mg IM QMONTHLY #1 each 03/26/21 Paliperidone [Invega] 9 mg PO DAILY 7 Days tablet 03/26/21 Propranolol [Inderal] 10 mg PO BID 30 Days tab 03/26/21 Allergies Allergy/AdvReac Type Severity Reaction Status Date / Time Penicillins Allergy Unknown Swelling Verified 02/23/21 13:32 Sulfa (Sulfonamide Allergy Unknown Swelling Verified 02/23/21 13:32 Antibiotics) Review of Systems ROS Statement: Those systems with pertinent positive or pertinent negative responses have been documented in the HPI. ROS Other: All systems not noted in ROS Statement are negative. Constitutional: Denies: fever, chills Respiratory: Denies: cough, dyspnea Cardiovascular: Denies: chest pain, palpitations, edema Gastrointestinal: Reports: vomiting. Denies: abdominal pain, nausea, diarrhea, hematemesis Genitourinary: Denies: dysuria, hematuria Musculoskeletal: Denies: back pain Skin: Denies: rash Neurological: Denies: headache, weakness, numbness Past Medical History Past Medical History: No Reported History Additional Past Medical History / Comment(s): hydratinitis suppertiva- skin condition History of Any Multi-Drug Resistant Organisms: None Reported Past Surgical History: Section Additional Past Surgical History / Comment(s): foot surgery 2006- bone chip removal Past Anesthesia/Blood Transfusion Reactions: No Reported Reaction Past Psychological History: Anxiety, Depression Smoking Status: Former smoker - Past Family History Father Family Medical History: Coronary Artery Disease (CAD), Hypertension Mother Family Medical History: Hypertension Additional Family Medical History / Comment(s): anxiety/depression General Exam Limitations: no limitations General appearance: alert, in no apparent distress Head exam: Present: atraumatic, normocephalic Eye exam: Present: normal appearance. Absent: scleral icterus, conjunctival injection Neck exam: Present: normal inspection, full ROM Respiratory exam: Present: normal lung sounds bilaterally. Absent: respiratory distress, wheezes, rales, rhonchi, stridor Cardiovascular Exam: Present: regular rate, normal rhythm, normal heart sounds. Absent: systolic murmur, diastolic murmur, rubs, gallop GI/Abdominal exam: Present: soft. Absent: distended, tenderness, guarding, re bound, rigid, mass Extremities exam: Present: normal inspection, normal capillary refill. Absent: pedal edema, calf tenderness Back exam: Present: normal inspection. Absent: CVA tenderness (R), CVA tenderness (L) Neurological exam: Present: alert, oriented X3, CN II-XII intact. Absent: motor sensory deficit Skin exam: Present: warm, dry, intact, normal color. Absent: rash Course Vital Signs 01/12/22 01/12/22 12:50 18:34 Temperature 98 F 98.5 F Pulse Rate 88 68 Respiratory 16 16 Rate Blood Pressure 108/69 113/73 O2 Sat by Pulse 99 100 Oximetry Medical Decision Making - Medical Decision Making Patient is 26-year-old woman here after she had lost consciousness while sitting at home. There is question whether this represented syncopal episode versus seizure. The patient does not appear to have had a very long period where she was not at baseline, this would be somewhat brief for a postictal period following generalized tonic-clonic seizure. Reportedly also the shaking movements not pronounced. Will have patient follow up with neurology for reevaluation including possible EEG. Calcium not to drive until seen by neurology. - Lab Data Result diagrams: 01/12/22 17:10 01/12/22 18:06 Lab Results 01/12/22 01/12/22 01/12/22 Range/Units 16:30 17:10 18:06 WBC 5.9 (3.8-10.6) k/uL RBC 3.10 L (3.80-5.40) m/uL Hgb 9.2 L (11.4-16.0) gm/dL Hct 27.5 L (34.0-46.0) % MCV 88.8 (80.0-100.0) fL MCH 29.7 (25.0-35.0) pg MCHC 33.4 (31.0-37.0) g/dL RDW 13.1 (11.5-15.5) % Plt Count 84 L (150-450) k/uL MPV 8.6 Neutrophils % 72 % Lymphocytes % 22 % Monocytes % 3 % Eosinophils % 2 % Basophils % 0 % Neutrophils # 4.2 (1.3-7.7) k/uL Lymphocytes # 1.3 (1.0-4.8) k/uL Monocytes # 0.2 (0-1.0) k/uL Eosinophils # 0.1 (0-0.7) k/uL Basophils # 0.0 (0-0.2) k/uL Sodium 140 (137-145) mmol/L Potassium 4.8 (3.5-5.1) mmol/L Chloride 106 (98-107) mmol/L Carbon Dioxide 25 (22-30) mmol/L Anion Gap 9 mmol/L BUN 12 (7-17) mg/dL Creatinine 0.50 L (0.52-1.04) mg/dL Est GFR (CKD-EPI)AfAm >90 (>60 ml/min/1.73 sqM) Est GFR (CKD-EPI)NonAf >90 (>60 ml/min/1.73 sqM) Glucose 87 (74-99) mg/dL Calcium 9.6 (8.4-10.2) mg/dL Magnesium 2.1 (1.6-2.3) mg/dL Total Bilirubin 0.3 (0.2-1.3) mg/dL AST 25 (14-36) U/L ALT 20 (4-34) U/L Alkaline Phosphatase 74 (38-126) U/L Total Protein 8.2 (6.3-8.2) g/dL Albumin 4.7 (3.5-5.0) g/dL Urine HCG, Qual Not Detected (Not Detectd) - EKG Data -: EKG Interpreted by [facility] EKG shows normal: sinus rhythm, axis (Normal), intervals (Normal), QRS complexes (Normal), ST-T waves (Normal) Rate: normal (Rate 64 bpm) Interpretation: normal EKG Disposition Clinical Impression: New onset seizure Disposition: HOME SELF-CARE Instructions (If sedation given, give patient instructions): Seizure/Epilepsy Discharge Instructions & Follow-Up Is patient prescribed a controlled substance at d/c from ED?: No Referrals: Becky Vargas MD [Primary Care Provider] - 1-2 days Ben Blue MD [STAFF PHYSICIAN] - 1-2 days
[2022-01-12 17:23] LABS: Basophils % (A) 0 %; Eosinophils # (A) 0.1 k/uL (0-0.7); Eosinophils % (A) 2 %; HCT 27.5 % (34.0-46.0); HGB 9.2 gm/dL (11.4-16.0); Lymphocytes # (A) 1.3 k/uL (1.0-4.8); Lymphocytes % (A) 22 %; MCH 29.7 pg (25.0-35.0); MCHC 33.4 g/dL (31.0-37.0); MCV 88.8 fL (80.0-100.0); Mean Platelet Volume 8.6; Monocytes # (A) 0.2 k/uL (0-1.0); Monocytes % (A) 3 %; Neutrophils # (A) 4.2 k/uL (1.3-7.7); Neutrophils % (A) 72 %; Platelet Count 84 k/uL (150-450); RDW 13.1 % (11.5-15.5); WBC 5.9 k/uL (3.8-10.6)
[2022-01-12 18:34] VITALS: BP 113/73; PULSE 68; TEMP 98.5
[2022-01-12 18:35] LABS: ALT 20 U/L (4-34); African American GFR (CKD) >90 (>60 ml/min/1.73 sqM); Albumin 4.7 g/dL (3.5-5.0); Anion Gap 9 mmol/L; Blood Urea Nitrogen 12 mg/dL (7-17); Calcium 9.6 mg/dL (8.4-10.2); Carbon Dioxide 25 mmol/L (22-30); Chloride 106 mmol/L (98-107); Glucose 87 mg/dL (74-99); Non-African American GFR(CKD) >90 (>60 ml/min/1.73 sqM); Sodium 140 mmol/L (137-145); Total Bilirubin 0.3 mg/dL (0.2-1.3); Total Protein 8.2 g/dL (6.3-8.2)
[2022-01-12 18:40] LABS: AST 25 U/L (14-36); Alkaline Phosphatase 74 U/L (38-126); Magnesium 2.1 mg/dL (1.6-2.3); Potassium 4.8 mmol/L (3.5-5.1)
== END 2022-01-12 19:23 | disposition home or self-care (01) ==
LOC: EC 12:01 → EEVIPCON 12:01 → EC 19:23
DX: R56.9 Unspecified convulsions (principal); F41.9 Anxiety disorder, unspecified; F32.A Depression, unspecified; Z87.891 Personal history of nicotine dependence; Z88.0 Allergy status to penicillin; Z88.2 Allergy status to sulfonamides
CPT/HCPCS: 36415; 70450; 72125; 80053; 81025; 83735; 85025; 93005; 96360; 99285

== ENCOUNTER 2022-04-28 14:02 | Emergency (ER) | payer OTHER ==
[2022-04-28 14:20] VITALS: TEMP 97.6
[2022-04-28 16:49] VITALS: RESP 18
[2022-04-28] MEDS ORDERED: KETOROLAC 15 MG/ML 1 ML VIAL IVP STA (17:00)
[2022-04-28] MEDS ORDERED: SODIUM CHLORIDE 0.9% 1,000 ML IV STA (17:00)
[2022-04-28] MEDS ORDERED: METOCLOPRAMIDE 5 MG/ML 2 ML VIAL IVP STA (17:00)
[2022-04-28] MEDS ORDERED: diphenhydrAMINE 50 MG/ML 1 ML VIAL IVP STA (17:00)
--- NOTE | 2022-04-28 18:13 | ED ---
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 She reports that the headache is throbbing in nature and generalized. She is unable to identify any aggravating or alleviating factors. She states that she has had headaches in the past but this seems to be more bothersome than her previous headaches. She denies any associated symptoms including any blurred or double vision, light sensitivity abdominal pain nausea, vomiting, chest pain, shortness of breath, fevers or chills. She does report that last week she did have a "cold" with cough that she is getting over. She was not tested for Covid or any other viral illnesses when she had her cold symptoms. She has a past medical history significant for hidradenitis suppurativa. - Related Data Home Medications Medication Instructions Recorded Confirmed ARIPiprazole [Abilify Maintena] 300 mg PO QMONTHLY 04/28/22 04/28/22 Allergies Allergy/AdvReac Type Severity Reaction Status Date / Time Penicillins Allergy Unknown Swelling Verified 04/28/22 15:08 Sulfa (Sulfonamide Allergy Unknown Swelling Verified 04/28/22 15:08 Antibiotics) Review of Systems ROS Statement: Those systems with pertinent positive or pertinent negative responses have been documented in the HPI. ROS Other: All systems not noted in ROS Statement are negative. Past Medical History Additional Past Medical History / Comment(s): hydratinitis suppertiva- skin condition History of Any Multi-Drug Resistant Organisms: None Reported Past Surgical History: Section Additional Past Surgical History / Comment(s): foot surgery 2007- bone chip removal Past Anesthesia/Blood Transfusion Reactions: No Reported Reaction Past Psychological History: Anxiety, Depression Smoking Status: Current every day smoker Past Alcohol Use History: None Reported Past Drug Use History: Marijuana - Past Family History Father Family Medical History: Coronary Artery Disease (CAD), Hypertension Mother Family Medical History: Hypertension Additional Family Medical History / Comment(s): anxiety/depression General Exam - General Exam Comments Initial Comments: GENERAL: No acute distress, well developed, well nourished. HEENT: Normocephalic, atraumatic. Pupils equal, round, reactive to light. Moist mucous membranes. LUNGS: No respiratory distress. Clear to auscultation, no adventitious sounds, no use of accessory muscles. HEART: Regular rate and rhythm without murmur, rub, or gallop. ABDOMEN: Normal bowel sounds. Soft, non-tender, non-distended. BACK: Normal inspection. EXTREMITIES: No edema. No tenderness. Moves all extremities. NEUROLOGIC: Alert & oriented x 3. CN II-XII grossly intact. PSYCHIATRIC: Normal affect and behavior. DERMATOLOGIC: Skin intact, without rashes or lesions noted. Limitations: no limitations Course Vital Signs 04/28/22 04/28/22 14:18 16:45 Temperature 97.6 F Pulse Rate 78 67 Respiratory 20 18 Rate Blood Pressure 125/79 110/80 O2 Sat by Pulse 99 97 Oximetry Medical Decision Making - Medical Decision Making Was pt. sent in by a medical professional or institution (, PA, [facility], urgent care, hospital, or [place] health care facility...) When possible be specific @ -No Did you speak to anyone other than the patient for history (EMS, parent, family, police, friend...)? What history was obtained from this source @ -No Did you review nursing and triage notes (agree or disagree)? Why? @ -I reviewed and agree with nursing and triage notes Were old charts reviewed (outside hosp., previous admission, EMS record, old EKG, old radiological studies, urgent care reports/EKG's, [place] health care facility records)? Report findings @ -No old charts were reviewed Differential Diagnosis (chest pain, altered mental status, abdominal pain women, abdominal pain men, vaginal bleeding, weakness, fever, dyspnea, syncope, headache, dizziness, GI bleed, back pain, seizure, CVA, palpatations, mental health, musculoskeletal)? @ -Differential Headache: Migraine, tension, cluster, carbon monoxide, central venous thrombosis, pension karma temporal arteritis, acute closure glaucoma, intercranial hemorrhage, mastoiditis, sinusitis, head injury, this is not meant to be an all-inclusive list. EKG interpreted by me (3pts min.). @ -None done X-rays interpreted by me (1pt min.). @ -None done CT interpreted by me (1pt min.). @ -None done U/S interpreted by me (1pt. min.). @ -None done What testing was considered but not performed or refused? (CT, X-rays, U/S, labs)? Why? @ -None What meds were considered but not given or refused? Why? @ -None Did you discuss the management of the patient with other professionals (professionals i.e. , PA, [facility], lab, RT, psych nurse, foster care social worker, statistics teacher, teacher, helicopter officer, gearcase assembler)? Give summary @ -No Was smoking cessation discussed for >3mins.? @ -No Was critical care preformed (if so, how long)? @ -No Were there social determinants of health that impacted care today? How? (Homelessness, low income, unemployed, alcoholism, drug addiction, transportation, low edu. Level, literacy, decrease access to med. care, [facility], rehab)? @ -No Was there de-escalation of care discussed even if they declined (Discuss DNR or withdrawal of care, Hospice)? DNR status @ -No What co-morbidities impacted this encounter? (DM, HTN, Smoking, COPD, CAD, Cancer, CVA, ARF, Chemo, Hep., AIDS, mental health diagnosis, sleep apnea, morbid obesity)? @ -None Was patient admitted / discharged? Hospital course, mention meds given and route, prescriptions, significant lab abnormalities, [facility]. @ -18-year-old female presenting to the emergency room with complaints of headache after work earlier this morning. She reports the headache is global without any associated symptoms. She has had headaches in the past with sponges has increased intensity and duration. She does not take any medication to attempt to treat her symptoms. She is recovering from a cold that she had earlier in the week was not tested for anything. No indication for diagnostic imaging or laboratory studies with the exception of viral testing for COVID, RSV and influenza. Migraine cocktail of Reglan, Toradol and Benadryl along with IV fluid bolus and monitor response. Symptoms much improved with migraine cocktail. Viral swab negative for covert, RSV and influenza. No indication for further diagnostic testing or laboratory studies at this time. Advised continued use of medication [id number] as needed for headaches including Tylenol or Motrin. Encouraged good hydration. Advise follow-up with primary care provider. Questions and concerns answered. Return parameters to the emergency room discussed. Will discharge home in stable condition with [id number] treatment for headache symptoms advising follow-up with primary care provider. Undiagnosed new problem with uncertain prognosis? @ -No Drug Therapy requiring intensive monitoring for toxicity (Heparin, Nitro, Insulin, Cardizem)? @ -No Were any procedures done? @ -No Diagnosis/symptom? @ -Headache Acute, or Chronic, or Acute on Chronic? @ -Acute Uncomplicated (without systemic symptoms) or Complicated (systemic symptoms)? @ -Uncomplicated Side effects of treatment? @ -No Exacerbation, Progression, or Severe Exacerbation? @ -No Poses a threat to life or bodily function? How? (Chest pain, [place], [place], pneumonia, PE, COPD, DKA, ARF, appy, cholecystitis, CVA, Diverticulitis, Homicidal, Suicidal, threat to staff... and all critical care pts) @ -No Case discussed with Dr. Castillo. Disposition Clinical Impression: Headache Disposition: HOME SELF-CARE Condition: Stable Instructions (If sedation given, give patient instructions): Acute Headache (ED) Additional Instructions: Please utilize Motrin or Tylenol [id number] as needed for pain. Please follow-up with your primary care provider. Please return to the Emergency Department if symptoms worsen or any other concerns. Is patient prescribed a controlled substance at d/c from ED?: No Referrals: Becky Vargas MD [Primary Care Provider] - 1-2 days Time of Disposition: 18:20
[2022-04-28 19:05] VITALS: BP 118/83; PULSE 72
== END 2022-04-28 19:05 | disposition home or self-care (01) ==
LOC: EC 14:02
DX: R51.9 Headache, unspecified (principal); F32.A Depression, unspecified; F41.9 Anxiety disorder, unspecified; F17.200 Nicotine dependence, unspecified, uncomplicated; F12.90 Cannabis use, unspecified, uncomplicated; Z88.0 Allergy status to penicillin; Z88.1 Allergy status to other antibiotic agents; Z88.2 Allergy status to sulfonamides; Z20.822 Contact with and (suspected) exposure to COVID-19
CPT/HCPCS: 87636; 99284; 96374; 96375 ×2; 96361; J1200; J2765; J1885

== ENCOUNTER 2022-11-17 12:25 | Emergency (ER) | payer OTHER ==
[2022-11-17] MEDS ORDERED: MORPHINE SULFATE 4 MG/ML SYRINGE IM STA (13:29)
--- NOTE | 2022-11-17 13:30 | ED ---
General Adult HPI - General Chief complaint: Skin/Abscess/Foreign Body Stated complaint: Cyst on Tailbone Time Seen by Provider: 11/17/22 13:16 Source: patient, RN notes reviewed Mode of arrival: ambulatory Limitations: no limitations - History of Present Illness Initial comments: 26-year-old female with past medical history significant for pilonidal cyst presents the emergency department with a chief complaint of wound recheck. She was seen and evaluated at this facility yesterday which she was diagnosed with a pilonidal cyst. She is provided outpatient antibiotics. Today she reports the abscess burst. She is requesting pain management and a work note. She denies any fever, chills changes in bowel habits. She reports she is sche duled for surgery with Dr. Quiroga on 11/22/2022. - Related Data Home Medications Medication Instructions Recorded Confirmed ARIPiprazole [Abilify Maintena] 300 mg PO QMONTHLY 04/28/22 04/28/22 Previous Rx's Medication Instructions Recorded Levofloxacin [Levaquin] 750 mg PO DAILY 1 Days #7 tab 11/16/22 Sulfamethox-Tmp 800-160Mg [Bactrim 2 tab PO BID #40 tab 11/16/22 DS 800-160 mg] Ibuprofen [Motrin] 800 mg PO Q8H #30 tab 11/17/22 Allergies Allergy/AdvReac Type Severity Reaction Status Date / Time Penicillins Allergy Unknown Swelling Verified 11/17/22 12:58 Sulfa (Sulfonamide Allergy Unknown Swelling Verified 11/17/22 12:58 Antibiotics) Review of Systems ROS Statement: Those systems with pertinent positive or pertinent negative responses have been documented in the HPI. ROS Other: All systems not noted in ROS Statement are negative. Past Medical History Past Medical History: No Reported History Additional Past Medical History / Comment(s): hydratinitis suppertiva- skin condition History of Any Multi-Drug Resistant Organisms: None Reported Past Surgical History: Section Additional Past Surgical History / Comment(s): foot surgery 2006- bone chip removal Past Anesthesia/Blood Transfusion Reactions: No Reported Reaction Past Psychological History: Anxiety, Depression Smoking Status: Current every day smoker Past Alcohol Use History: None Reported Past Drug Use History: Marijuana - Past Family History Father Family Medical History: Coronary Artery Disease (CAD), Hypertension Mother Family Medical History: Hypertension Additional Family Medical History / Comment(s): anxiety/depression General Exam - General Exam Comments Initial Comments: General: Alert, in no acute distress Head: atraumatic normocephalic. Eyes PERRL, EOMI intact, mucous membranes moist Respiratory: Lungs clear to auscultation bilaterally Cardiovascular: Heart rate regular rate and rhythm Abdominal: Soft without guarding or rebound Extremities: Normal inspection with full range of motion and normal capillary refill, pilonidal cyst without active drainage, marked erythema. It is tender. Neuroogic: alert and oriented 3, CN II-XII intact, able to ambulate with steady gait Skin: warm dry and intact with normal color Limitations: no limitations Course Vital Signs 11/17/22 11/17/22 12:53 15:00 Temperature 98.1 F 98.4 F Pulse Rate 99 96 Respiratory 18 16 Rate Blood Pressure 121/82 99/73 O2 Sat by Pulse 98 98 Oximetry Procedures - Incision & Drainage Consent Obtained: verbal consent Indication: abscess Site: buttock Anesthetic Used: lidocaine 1% I&D Cleaning Method: Chloroprep Sterile Field Used?: No Scalpel Used: #11 Ultrasound used: No Needle Aspiration Performed?: No Irrigation Performed?: No I&D Drainage Obtained: Pus, Blood Loculation Noted: probing needed to break Insertion of drain: No Culture Obtained?: Yes Complications: pain, bleeding Patient Tolerated Procedure: well, no complications Medical Decision Making - Medical Decision Making Was pt. sent in by a medical professional or institution ([facility], [facility], urgent care, hospital, or [facility]ci...) When possible be specific @ -[No] Did you speak to anyone other than the patient for history (EMS, parent, family, police, friend...)? What history was obtained from this source @ -[No] Did you review nursing and triage notes (agree or disagree)? Why? @ -[I reviewed and agree with nursing and triage notes] Were old charts reviewed (outside hosp., previous admission, EMS record, old EKG, old radiological studies, urgent care reports/EKG's, [facility] records)? Report findings @ Charts reviewed from 11/16/2022 Differential Diagnosis (chest pain, altered mental status, abdominal pain women, abdominal pain men, vaginal bleeding, weakness, fever, dyspnea, syncope, headache, dizziness, GI bleed, back pain, seizure, CVA, palpatations, mental health, musculoskeletal)? @ -[not applicable] EKG interpreted by me (3pts min.). @ -[As above] X-rays interpreted by me (1pt min.). @ -[None done] CT interpreted by me (1pt min.). @ -[None done] U/S interpreted by me (1pt. min.). @ -[None done] What testing was considered but not performed or refused? (CT, X-rays, U/S, labs)? Why? @ -[None] What meds were considered but not given or refused? Why? @ -[None] Did you discuss the management of the patient with other professionals (professionals i.e. , PA, [facility], lab, RT, psych nurse, social service director, creative arts therapist, teacher, founder and chief technical officer, case advocate)? Give summary @ -[No] Was smoking cessation discussed for >3mins.? @ -[No] Was critical care preformed (if so, how long)? @ -[No] Were there social determinants of health that impacted care today? How? (Homelessness, low income, unemployed, alcoholism, drug addiction, transportation, low edu. Level, literacy, decrease access to med. care, long term, rehab)? @ -[No] Was there de-escalation of care discussed even if they declined (Discuss DNR or withdrawal of care, Hospice)? DNR status @ -[No] What co-morbidities impacted this encounter? (DM, HTN, Smoking, COPD, CAD, Cancer, CVA, ARF, Chemo, Hep., AIDS, mental health diagnosis, sleep apnea, morbid obesity)? @ -[None] Was patient admitted / discharged? Hospital course, mention meds given and route, prescriptions, significant lab abnormalities, going to OR and other pertinent info. @ -Discharged. This is a 26-year-old female presents the emergency department with abscess. Patient had a thorough history and physical exam performed. Physical exam reveals pilonidal cyst. Patient had I&D Procedure performed with 20 mL of thick dark pus removed. Patient was given morphine with symptomatic relief. She is encouraged to continue taking antibiotics as prescribed. Recommend close follow-up with her surgeon on 11/22/22. Case discussed with Dr. Kvng CARRERO who agrees with plan of care Undiagnosed new problem with uncertain prognosis? @ -[No] Drug Therapy requiring intensive monitoring for toxicity (Heparin, Nitro, Insulin, Cardizem)? @ -[No] Were any procedures done? @ -[No] Diagnosis/symptom? @ -Pilonidal Cyst Acute, or Chronic, or Acute on Chronic? @ -Acute Uncomplicated (without systemic symptoms) or Complicated (systemic symptoms)? @ Uncomplicated8 Side effects of treatment? @ -[No] Exacerbation, Progression, or Severe Exacerbation? @ -[No] Poses a threat to life or bodily function? How? (Chest pain, [place], [place], pneumonia, PE, COPD, DKA, ARF, appy, cholecystitis, CVA, Diverticulitis, Homicidal, Suicidal, threat to staff... and all critical care pts) @ -Low likelihood Disposition Clinical Impression: Pilonidal cyst Disposition: HOME SELF-CARE Condition: Stable Instructions (If sedation given, give patient instructions): Abscess (ED) Additional Instructions: Continue antibiotics as prescribed Continue to take Tylenol Motrin at home for pain management Okay to return to work with restrictions Please return to the nearest emergency department if symptoms worsen or persist Prescriptions: Ibuprofen [Motrin] 800 mg PO Q8H #30 tab Is patient prescribed a controlled substance at d/c from ED?: No Referrals: Becky Vargas MD [Primary Care Provider] - 1-2 days Nacho Pacheco MD [STAFF PHYSICIAN] - 1-2 days Time of Disposition: 13:44
[2022-11-17] MEDS ORDERED: LIDOCAINE 1% INJ 10MG/ML (20 ML MDV) SQ ONE (13:37)
[2022-11-17 15:12] VITALS: BP 99/73; PULSE 96; RESP 16; TEMP 98.4
== END 2022-11-17 15:14 | disposition home or self-care (01) ==
LOC: EC 12:25
DX: L05.01 Pilonidal cyst with abscess (principal); F41.9 Anxiety disorder, unspecified; F32.A Depression, unspecified; F17.200 Nicotine dependence, unspecified, uncomplicated; F12.90 Cannabis use, unspecified, uncomplicated; Z79.899 Other long term (current) drug therapy; Z88.0 Allergy status to penicillin; Z88.2 Allergy status to sulfonamides
CPT/HCPCS: 87070; 87205; 10080; 99283; 96372; J2270; J2001

== ENCOUNTER 2022-11-23 10:52 | Day surgery (SDC) | payer OTHER ==
[~2022-11-23 10:52] MED LIST: ACETAMINOPHEN TAB 500 MG TAB PO PRN; DEXAMETHASONE SOD PHOSPHATE 4 MG/ML 1 ML VIAL IV ONE; HEPARIN SODIUM,PORCINE/PF 5,000 UNIT/0.5 ML SYRINGE SQ PRN; LACTATED RINGERS 1,000 ML IV SCH; LIDOCAINE 1% (10MG/ML) FOR IV START INTRADERMA PRN; MIDAZOLAM 2 MG/2 ML VIAL IV PRN; ONDANSETRON 4 MG/2 ML VIAL IVP ONE; ceFAZolin 3 GM in SODIUM CHLORIDE 0.9% 100 ML IVPB PRN; metroNIDAZOLE-NS PMX 500 MG in SALINE 1 100ML.BAG IVPB PRN
[2022-11-23 11:36] LABS: Glucose,Whole Blood 107 mg/dL (70-110)
[2022-11-23] MEDS ORDERED: SUCCINYLCHOLINE CHLORIDE 200 MG/10 ML VIAL IV ONE (11:53)
[2022-11-23] MEDS ORDERED: NEOSTIGMINE 1 MG/ML 10 ML VIAL ONE (11:53)
[2022-11-23] MEDS ORDERED: ROCURONIUM 10 MG/ML (5 ML VIAL) IV ONE (11:53)
[2022-11-23] MEDS ORDERED: MIDAZOLAM 2 MG/2 ML VIAL ONE (11:53)
[2022-11-23] MEDS ORDERED: LIDOCAINE 1% INJ 10MG/ML (20 ML MDV) ONE (11:53)
[2022-11-23] MEDS ORDERED: KETAMINE HCL IN 0.9 % NACL 50 MG/5 ML SYRINGE ONE (11:53)
[2022-11-23] MEDS ORDERED: KETOROLAC 15 MG/ML 1 ML VIAL ONE (11:53)
[2022-11-23] MEDS ORDERED: GLYCOPYRROLATE 0.2 MG/ML 2 ML VIAL ONE (11:53)
[2022-11-23] MEDS ORDERED: HYDROmorphone (PF) 1 MG/ML ONE (11:53)
[2022-11-23] MEDS ORDERED: fentaNYL (PF) 50 MCG/ML 2 ML AMP ONE (11:53)
[2022-11-23] MEDS ORDERED: PROPOFOL 10 MG/ML 20 ML VIAL IV ONE (11:53)
[2022-11-23] MEDS ORDERED: LIDOCAINE 1%-EPI 1:100,000 50 ML VIAL SQ ONE ×2 (12:01)
--- NOTE | 2022-11-23 12:18 | P.OP ---
Date of Procedure: 11/23/22 Preoperative Diagnosis: Surgeon of pilonidal cyst with abscess Postoperative Diagnosis: Same Procedure(s) Performed: Vision of pilonidal cyst with abscess Anesthesia: AUSTYN Surgeon: Nacho Pacheco Estimated Blood Loss (ml): 25 Pathology: other (Pilonidal cyst) Condition: stable Disposition: PACU Description of Procedure: Patient's placed on the operative table in the supine position her she received general anesthesia. She was then placed the prone jackknife position. The area the Patanol cyst was prepped and draped usual sterile fashion. There is evidence of chronic infection and possible. The area had elliptical sit skin incision made then using left cautery the pylorus this was dissected free. There was hemostasis. The wound was then packed with wet-to-dry Kerlix. Patient top she will well. She was sent to recovery room stable condition.
[2022-11-23 12:35] VITALS: TEMP 97.6
[2022-11-23] MEDS: HYDROmorphone 0.5 MG/0.5 ML SYRINGE IVP PRN ×2 (12:50→13:34)
[2022-11-23 12:55] VITALS: RESP 16
[2022-11-23 14:33] VITALS: BP 108/66; PULSE 70
== END 2022-11-23 14:30 | disposition home health service (06) ==
LOC: OR 10:52 → EEVIPCON 11:45 → OR 14:30
PROVIDERS: ATTEND Surgery
DX: L05.01 Pilonidal cyst with abscess (principal); E66.01 Morbid (severe) obesity due to excess calories; F31.9 Bipolar disorder, unspecified; Z88.0 Allergy status to penicillin; Z88.2 Allergy status to sulfonamides; Z79.899 Other long term (current) drug therapy; Z68.41 Body mass index [BMI] 40.0-44.9, adult
CPT/HCPCS: 81025; 88304; 11770; J2250; J0330; J1100; J2710; J0690; J2405; J2001; J3010; J1170 ×2; J1885; J2704; J1644

== ENCOUNTER 2023-01-13 07:15 | Day surgery (SDC) | payer OTHER ==
[2023-01-12 11:05] VITALS: BMI 48.6
[~2023-01-13 07:15] MED LIST changes: -ACETAMINOPHEN TAB 500 MG TAB PO PRN; -DEXAMETHASONE SOD PHOSPHATE 4 MG/ML 1 ML VIAL IV ONE; -HEPARIN SODIUM,PORCINE/PF 5,000 UNIT/0.5 ML SYRINGE SQ PRN; -LIDOCAINE 1% (10MG/ML) FOR IV START INTRADERMA PRN; -MIDAZOLAM 2 MG/2 ML VIAL IV PRN; -ONDANSETRON 4 MG/2 ML VIAL IVP ONE; -ceFAZolin 3 GM in SODIUM CHLORIDE 0.9% 100 ML IVPB PRN; -metroNIDAZOLE-NS PMX 500 MG in SALINE 1 100ML.BAG IVPB PRN
[2023-01-13 08:07] LABS: Glucose,Whole Blood 110 mg/dL (70-110)
[2023-01-13 08:13] VITALS: RESP 18; TEMP 96.9
[2023-01-13] MEDS ORDERED: PROPOFOL 10 MG/ML 20 ML VIAL IV ONE (08:21)
--- NOTE | 2023-01-13 08:33 | P.OP ---
Date of Procedure: 01/13/23 Preoperative Diagnosis: GI bleed Postoperative Diagnosis: Internal hemorrhoids Procedure(s) Performed: Colonoscopy Anesthesia: MAC Surgeon: Nacho Pacheco Condition: stable Disposition: PACU Description of Procedure: Patient's placed on the endoscopy table in the lateral position. She received IV sedation. Digital rectal exam was performed. There were a few internal hemorrhoids noted. The flexible colonoscope was then placed patient anus and passed throughout the entire colon. The ileocecal valve was visualized. The ce cum, ascending and transverse colon appeared normal. The descending and sigmoid colon appeared normal. The scope was brought back the rectum this appeared normal. Scope withdrawn through the anus and some minimal internal hemorrhoids are noted. Withdrawn for patient. There is no sign of any GI bleed. Presumed patient may been bleeding from internal hemorrhoids.
[2023-01-13 09:00] VITALS: BP 116/54; PULSE 69
== END 2023-01-13 09:22 | disposition home or self-care (01) ==
LOC: ORWHC2ENDO 07:15
PROVIDERS: ATTEND Surgery
DX: K64.8 Other hemorrhoids (principal); K92.2 Gastrointestinal hemorrhage, unspecified; G47.33 Obstructive sleep apnea (adult) (pediatric); F17.200 Nicotine dependence, unspecified, uncomplicated; F31.9 Bipolar disorder, unspecified; F43.10 Post-traumatic stress disorder, unspecified; Z79.899 Other long term (current) drug therapy; Z88.0 Allergy status to penicillin; Z88.2 Allergy status to sulfonamides; Z91.018 Allergy to other foods
CPT/HCPCS: 81025; 45378; J2704

== ENCOUNTER 2023-05-10 22:25 | Emergency (ER) | payer OTHER ==
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
[2023-05-10] MEDS: KETOROLAC 15 MG/ML 1 ML VIAL IM STA (22:52)
[2023-05-10 23:02] VITALS: RESP 16
--- NOTE | 2023-05-11 00:06 | XR ---
EXAM: XR Left Shoulder Complete, 2 or More Views CLINICAL HISTORY: ITS.REASON XR Reason: pain TECHNIQUE: Two or more views of the left shoulder. COMPARISON: No relevant prior studies available. FINDINGS: Bones/joints: Unremarkable. No acute fracture. No dislocation. Soft tissues: Unremarkable. IMPRESSION: Normal left shoulder x-rays.
[2023-05-11 00:24] VITALS: BP 126/88; PULSE 84; TEMP 98.2
== END 2023-05-11 00:03 | disposition home or self-care (01) ==
LOC: EC 22:25
DX: S43.402A Unspecified sprain of left shoulder joint, initial encounter (principal); F12.90 Cannabis use, unspecified, uncomplicated; F17.290 Nicotine dependence, other tobacco product, uncomplicated; Z88.0 Allergy status to penicillin; Z88.2 Allergy status to sulfonamides; Z91.018 Allergy to other foods; X58.XXXA Exposure to other specified factors, initial encounter
CPT/HCPCS: 99283; 96372; 73030; J1885

== ENCOUNTER → 2023-11-23 | Outpatient (CLI) | payer OTHER ==
--- NOTE | 2023-11-25 01:06 | MR ---
EXAMINATION TYPE: MR shoulder LT wo con DATE OF EXAM: 11/23/2023 COMPARISON: Left shoulder x-ray May 10, 2023 HISTORY: Left shoulder sharp pain with difficulty raising arm overhead due to work injury several mon ths earlier. TECHNIQUE: Multiplanar, multisequence imaging of the left shoulder is performed without contrast. FINDINGS: Rotator Cuff: Intact supraspinatus and infraspinatus tendons. Intact subscapularis tendon. Rotator cu ff muscle bulk is preserved. Acromioclavicular Joint: Mild to moderate narrowing and capsular hypertrophy. Underlying fat plane is maintained. Mild spurring is noted. Glenohumeral Joint: Small joint effusion. No significant spurring. Labrum: The labrum appears grossly intact given limitation of non-arthrogram study. Biceps Tendon: The long head of biceps is in normal location within bicipital groove. Bone marrow signal: Some heterogeneity. No suspicious edema. Other: No additional significant abnormality is appreciated. IMPRESSION: No rotator cuff or labral tear is seen. [facility], , 11/25/2023 1:03 AM
== END | disposition home or self-care (01) ==
LOC: RADMRIMAIN 17:24
PROVIDERS: ATTEND Emergency Medicine
DX: S46.912D Strain of unspecified muscle, fascia and tendon at shoulder and upper arm level, left arm, subsequent encounter (principal)

== ENCOUNTER 2024-02-06 11:43 | Emergency (ER) | payer BC, OTHER ==
[2024-02-06] MEDS: SODIUM CHLORIDE 0.9% 1,000 ML IV STA (13:00)
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
[2024-02-06] MEDS: KETOROLAC 15 MG/ML 1 ML VIAL IVP STA (13:08)
[2024-02-06] MEDS: MORPHINE SULFATE 4 MG/ML SYRINGE IVP STA (13:11)
[2024-02-06 13:13] LABS: Basophils # (A) 0.1 k/uL (0-0.2); Basophils % (A) 1 %; Eosinophils # (A) 0.2 k/uL (0-0.7); Eosinophils % (A) 1 %; HCT 40.6 % (34.0-46.0); HGB 13.5 gm/dL (11.4-16.0); Lymphocytes # (A) 2.4 k/uL (1.0-4.8); Lymphocytes % (A) 19 %; MCH 29.1 pg (25.0-35.0); MCHC 33.3 g/dL (31.0-37.0); MCV 87.4 fL (80.0-100.0); Mean Platelet Volume 6.4; Monocytes # (A) 0.5 k/uL (0-1.0); Monocytes % (A) 4 %; Neutrophils # (A) 9.5 k/uL (1.3-7.7); Neutrophils % (A) 74 %; Platelet Count 486 k/uL (150-450); RBC 4.64 m/uL (3.80-5.40); WBC 12.7 k/uL (3.8-10.6)
[2024-02-06 13:27] LABS: ALT 28 U/L (4-34); AST 31 U/L (14-36); African American GFR (CKD) >90 (>60 ml/min/1.73 sqM); Albumin 4.7 g/dL (3.5-5.0); Alkaline Phosphatase 88 U/L (38-126); Anion Gap 12 mmol/L; Blood Urea Nitrogen 9 mg/dL (7-17); C Reactive Protein 7.7 mg/dL (<1.0); Calcium 9.6 mg/dL (8.4-10.2); Carbon Dioxide 24 mmol/L (22-30); Chloride 106 mmol/L (98-107); Glucose 98 mg/dL (74-99); Non-African American GFR(CKD) >90 (>60 ml/min/1.73 sqM); Potassium 4.1 mmol/L (3.5-5.1); Sodium 142 mmol/L (137-145); Total Bilirubin 0.6 mg/dL (0.2-1.3); Total Protein 8.4 g/dL (6.3-8.2)
--- NOTE | 2024-02-06 14:05 | CT ---
EXAMINATION TYPE: CT abdomen pelvis w con CT DLP: 2085 mGycm, Automated exposure control for dose reduction was used. DATE OF EXAM: 02/06/2024 1:56 PM COMPARISON: CT abdomen pelvis 07/06/2018, CT pelvis 11/16/2022 CLINICAL INDICATION:Female, 28 years old with history of Pilonidal cyst; cyst on tailbone TECHNIQUE: Standard CT of the abdomen and pelvis following the administration of 100 cc of Isovue 3 00 IV contrast material. Coronal and sagittal reformats were performed. FINDINGS: LOWER CHEST: Unremarkable ABDOMEN LIVER: Unremarkable GALLBLADDER AND BILE DUCTS: Unremarkable. PANCREAS: Unremarkable. SPLEEN: Unremarkable. ADRENAL GLANDS: Unremarkable. KIDNEYS AND URETERS: No evidence of hydronephrosis or renal calculus. The kidneys enhance symmetrical ly. Tiny left subcentimeter cortical cyst. Contrast is demonstrated within both collecting systems on the delayed phase. PELVIS BLADDER: Incompletely distended but grossly unremarkable. REPRODUCTIVE: Unremarkable. ABDOMEN & PELVIS STOMACH AND BOWEL: Stomach and duodenum are unremarkable. No focal bowel wall thickening or surroundi ng inflammatory changes. The appendix is within normal limits. No evidence of bowel obstruction. PERITONEUM: No evidence of pneumoperitoneum or free fluid. VASCULATURE: No evidence of aortic aneurysm. MUSCULOSKELETAL: No acute osseous abnormalities LYMPH NODES: No gross evidence for lymphadenopathy. SOFT TISSUE/ABDOMINAL WALL: Tiny fat filled umbilical hernia. There is a thick wall peripherally enha ncing fluid collection with single focus of gas identified along the superior aspect of the gluteal c rease in the soft tissues at midline at the level of the lower sacrum measuring 3.5 x 3.2 x 4.8 cm in AP, TV, CC dimensions (series 201, image 68). There is surrounding fat stranding identified. IMPRESSION: 1. Findings compatible with infected pilonidal cyst/abscess measuring up to 4.8 cm. 2. No acute process within the abdomen or pelvis. [facility], , 02/06/2024 2:02 PM
[2024-02-06] MEDS: LIDOCAINE 1% INJ 10MG/ML (20 ML MDV) SQ ONE (14:28)
[2024-02-06 15:20] VITALS: BP 120/86; PULSE 96; RESP 18; TEMP 97.9
== END 2024-02-06 15:40 | disposition home or self-care (01) ==
LOC: EC 11:43
DX: L05.91 Pilonidal cyst without abscess (principal); Z88.0 Allergy status to penicillin; Z88.1 Allergy status to other antibiotic agents; Z88.2 Allergy status to sulfonamides
CPT/HCPCS: 36415; 80053; 83605; 85025; 86140; 74177; 99284; 96374; 96375; 96361; J2270; J2003; J1885; Q9967

== ENCOUNTER → 2024-03-30 | Outpatient (CLI) | payer BC ==
[2024-03-30 15:15] LABS: HGB 11.7 g/dL (12.0-15.0); MCHC 31.6 g/dL (32.0-37.0); MCV 91.6 FL (80.0-97.0); Mean Platelet Volume 9.2 FL (9.5-12.2); NRBC Per 100 WBC 0 X 10*3/uL (0.00-0.01); Platelet Count 368 X 10*3/uL (140-440); RBC 4.04 X 10*6/uL (4.10-5.20); RDW 13.4 % (11.5-14.5); WBC 7.58 X 10*3/uL (4.50-10.00)
== END | disposition home or self-care (01) ==
LOC: LABPAT 10:24
PROVIDERS: ATTEND Surgery
DX: Z01.812 Encounter for preprocedural laboratory examination (principal)
CPT/HCPCS: 85027

== ENCOUNTER 2024-04-02 12:11 | Day surgery (SDC) | payer BC ==
[2024-03-28 12:21] VITALS: BMI 42.5
[~2024-04-02 12:11] MED LIST changes: -LACTATED RINGERS 1,000 ML IV SCH; +LIDOCAINE 1% (10MG/ML) FOR IV START INTRADERMA PRN; +ceFAZolin 3 GM in SODIUM CHLORIDE 0.9% 100 ML IVPB PRN; +metroNIDAZOLE-NS PMX 500 MG in SALINE 1 100ML.BAG IVPB PRN
[2024-04-02] MEDS: ONDANSETRON 4 MG/2 ML VIAL IVP ONE (13:48)
[2024-04-02] MEDS: LACTATED RINGERS 1,000 ML IV SCH (13:48)
[2024-04-02] MEDS: DEXAMETHASONE SOD PHOSPHATE 4 MG/ML 1 ML VIAL IV ONE (13:48)
[2024-04-02] MEDS: MIDAZOLAM 2 MG/2 ML VIAL IV ONE (13:58)
[2024-04-02] MEDS: IV FLUID CONTINUATION 1,000 ML IV ONE (14:00)
[2024-04-02] MEDS ORDERED: GLYCOPYRROLATE 0.2 MG/ML 2 ML VIAL ONE (14:13)
[2024-04-02] MEDS ORDERED: PROPOFOL 10 MG/ML 20 ML VIAL IV ONE (14:13)
[2024-04-02] MEDS ORDERED: MIDAZOLAM 2 MG/2 ML VIAL ONE (14:13)
[2024-04-02] MEDS ORDERED: LIDOCAINE 1% INJ 10MG/ML (20 ML MDV) ONE (14:13)
[2024-04-02] MEDS: SODIUM CHLORIDE 0.9% 100 ML with ceFAZolin 2,000 MG IV ONE (14:13)
[2024-04-02] MEDS ORDERED: fentaNYL (PF) 50 MCG/ML 2 ML AMP ONE (14:13)
[2024-04-02] MEDS ORDERED: SUCCINYLCHOLINE CHLORIDE 200 MG/10 ML VIAL IV ONE (14:13)
[2024-04-02] MEDS ORDERED: NEOSTIGMINE 1 MG/ML 10 ML VIAL ONE (14:13)
[2024-04-02] MEDS ORDERED: ROCURONIUM 10 MG/ML (5 ML VIAL) IV ONE (14:13)
[2024-04-02] MEDS: METHYLENE BLUE 50 MG/10 ML AMPUL MISCELLANE ONE (14:30)
[2024-04-02] MEDS: LIDOCAINE 1%-EPI 1:100,000 20 ML VIAL SQ ONE ×2 (14:36)
[2024-04-02] MEDS ORDERED: NALOXONE 0.4 MG/ML 1 ML VIAL IV PRN (14:54)
[2024-04-02] MEDS ORDERED: ONDANSETRON 4 MG/2 ML VIAL IVP PRN (14:54)
[2024-04-02] MEDS: HYDROmorphone 0.5 MG/0.5 ML SYRINGE IVP PRN (15:38)
[2024-04-02] MEDS: KETOROLAC 15 MG/ML 1 ML VIAL IVP SCH (15:50)
[2024-04-02] MEDS: HEPARIN SODIUM,PORCINE 5,000 UNIT/ML 1 ML VIAL SQ SCH (17:06)
[2024-04-02] MEDS: HYDROcodone/APAP 5-325MG 1 EACH TAB PO PRN (19:42)
[2024-04-02] MEDS: LORazepam 0.5 MG TAB PO ONE (21:40)
[2024-04-02] MEDS: LURASIDONE 40 MG TAB PO SCH (23:57)
[2024-04-03 04:20] LABS: Basophils % (A) 0 %; Eosinophils % (A) 0 %; HCT 38.3 % (34.0-46.0); HGB 11.7 gm/dL (11.4-16.0); Hypochromasia Slight; Lymphocytes % (A) 19 %; MCH 27.7 pg (25.0-35.0); MCHC 30.6 g/dL (31.0-37.0); MCV 90.6 fL (80.0-100.0); Mean Platelet Volume 6.9; Monocytes # (A) 0.7 k/uL (0-1.0); Monocytes % (A) 6 %; Neutrophils # (A) 7.7 k/uL (1.3-7.7); Neutrophils % (A) 74 %; Platelet Count 454 k/uL (150-450); RBC 4.22 m/uL (3.80-5.40); RDW 13.3 % (11.5-15.5); WBC 10.5 k/uL (3.8-10.6)
--- NOTE | 2024-04-03 07:22 | P.OP ---
Date of Procedure: 04/02/24 Preoperative Diagnosis: Pilonidal cyst Postoperative Diagnosis: Pilonidal cyst, measuring 6 x 3 x 2 cm Procedure(s) Performed: Pilonidal cystectomy Application of negative pressure wound VAC Anesthesia: AUSTYN Surgeon: Elvis Ramesh Pathology: other (Pilonidal cyst) Condition: stable Disposition: floor Indications for Procedure: 28-year-old female presents today for recurrent pilonidal cyst with drainage. Recommendation has been made for pilonidal cystectomy. Due to previous patient issues with wound healing, recommendation is made for wound VAC placement. Risks, benefits and alternatives were provided to the patient. All questions answered prior to attending the operative suite. Operative Findings: 6 x 3 x 2 cm pilonidal cyst wound site Description of Procedure: Patient was brought to the operating suite and placed in supine position on the operating table. Sedation was provided by anesthesia and the patient underwent endotracheal intubation. She was then placed in prone jackknife position. Methylene blue was placed within the sinus tract of the pilonidal cyst. Patient was prepped and draped in regular sterile fashion. Curvilinear incision was made around the pilonidal cyst site and dissection was carried towards the presacral fascia. The pilonidal cyst site was completely excised. Hemostasis was maintained with cautery. The wound measured 6 x 3 x 2 cm and decision was made for wound VAC placement per previous discussion with the patient. Black sponge was placed within the wound cavity and dressing applied. Patient tolerated this. Appropriate seal was noted. Patient was then awakened in the operating suite and taken to postanesthesia care unit in stable condition.
[2024-04-03] MEDS: DOCUSATE 100 MG CAP PO SCH (08:17)
[2024-04-03] MEDS: FAMOTIDINE 20 MG TAB PO SCH (08:17)
[2024-04-03 08:42] LABS: ALT 20 U/L (8-44); AST 18 U/L (13-35); Albumin 4.1 g/dL (3.8-4.9); Albumin/Globulin Ratio 1.41 Ratio (1.60-3.17); Alkaline Phosphatase 77 U/L (41-126); BUN/Creat Ratio 16.43 Ratio (12.00-20.00); Blood Urea Nitrogen 11.5 mg/dL (9.0-27.0); Carbon Dioxide 22.2 mmol/L (21.6-31.8); Chloride 105 mmol/L (96-109); Globulin 2.9 g/dL (1.6-3.3); Glucose 133 mg/dL (70-110); Potassium 4.4 mmol/L (3.5-5.5); Sodium 140 mmol/L (135-145); Total Bilirubin 0.2 mg/dL (0.3-1.2)
--- NOTE | 2024-04-03 10:40 | P.CONS ---
History of Present Illness - Reason for Consult Consult date: 04/03/24 wound care - History of Present Illness This is a 28-year-old female being seen on 4 S. for a reoccurring pilonidal cyst. Patient underwent surgery currently with a negative pressure wound VAC in place. The ulceration measures approximately 6 x 3 x 2 cm with slough and nonviable tissue present granulation seen. Patient states that this is her second time that the cyst has reopened. She was the patient previously in the wound care center. Review Of Systems: Constitutional: No fever, no chills, no night sweats. No weight change. No weakness, fatigue or lethargy. No daytime sleepiness. Integumentary:reports wounds, no lesions. No rash or pruritus. No unusual bruising. No change in hair or nails. Physical exam: General Appearance: Alert, cooperative, no distress, appears stated age. Skin: See HPI all other Skin color, texture, tugor normal, no rashes or lesions. Neurologic: Alert oriented x3 Assessment: 1. Nonhealing ulceration other site with fat layer exposure Plan: 1. Apply NPWT at 125 mm/hg at Continuous pressure. Upon discharge apply absorptive silver rope to the site. May stay in place until outpatient wound VAC is available. Patient would benefit from advanced wound care and wound care setting. We happy to see her upon discharge. Thank you for the consult any questions please contact the wound care center. DNP note has been reviewed and discussed with Dr. Blanco and the impression and plan of care has been directed as dictated. Past Medical History Past Medical History: Osteoarthritis (OA), Skin Disorder, Sleep Apnea/CPAP/BIPAP Additional Past Medical History / Comment(s): hydratinitis suppertiva- skin condition boils axilla, under breasts and groin, pilonidal cyst - golf ball. drained in ER 11/17/22. cyst then ruptured in jan 2024. was seen in the ED. Prediabetic. Bipolar ptsd History of Any Multi-Drug Resistant Organisms: None Reported Past Surgical History: Section, Orthopedic Surgery Additional Past Surgical History / Comment(s): foot surgery 2006- bone chip removal, pilonidal cyst Past Anesthesia/Blood Transfusion Reactions: No Reported Reaction Additional Past Anesthesia/Blood Transfusion Reaction / Comm: no blood transfusion Past Psychological History: Anxiety, Bipolar, Depression, PTSD Additional Psychological History / Comment(s): 3 stays on 3W per pt- leading to legal guardian for financial issues. pt can sign medical Smoking Status: Former smoker, Vaper Past Alcohol Use History: None Reported, Rare Additional Past Alcohol Use History / Comment(s): 1 -2 cigarettes every few days. smoking since high school , trying to quit Past Drug Use History: Marijuana Additional Drug Use History / Comment(s): smokes marijauna. pt aware not to use 24 hrs before procedure - Past Family History Father Family Medical History: Coronary Artery Disease (CAD), Hypertension Mother Family Medical History: Hypertension Additional Family Medical History / Comment(s): anxiety/depression Medications and Allergies Home Medications Medication Instructions Recorded Confirmed Type Fluticasone Propionate 2 spray NASAL DIRECTED PRN 11/19/22 03/28/24 History [Fluticasone Propionate Nasal [place]] Lurasidone HCl 40 mg PO DAILY 11/19/22 03/28/24 History Acetaminophen Tab [Tylenol] 650 mg PO Q6H #30 tab 11/23/22 03/28/24 Rx Allergies Allergy/AdvReac Type Severity Reaction Status Date / Time Penicillins Allergy Unknown Swelling Verified 04/02/24 12:38 Sulfa (Sulfonamide Allergy Unknown Swelling Verified 04/02/24 12:38 Antibiotics) kiwi Allergy mouth Uncoded 04/02/24 12:38 itches Physical Exam Vitals: Vital Signs Temp Pulse Resp BP BP Pulse Ox 04/03/24 08:09 97.4 F L 93 17 104/69 99 04/03/24 07:30 81 20 04/03/24 00:53 97.8 F 81 20 103/70 97 04/02/24 18:50 98.0 F 73 18 102/67 95 04/02/24 16:15 88 16 119/84 97 04/02/24 16:00 79 16 98/58 97 04/02/24 15:45 77 16 108/56 100 04/02/24 15:30 63 16 106/58 100 04/02/24 15:15 62 16 115/66 100 04/02/24 15:02 98 F 72 16 114/59 100 04/02/24 12:38 99 F 88 16 127/73 98 Intake and Output 04/02/24 04/03/24 04/03/24 22:59 06:59 14:59 Intake Total 300 420 Balance 300 420 Intake: IV 300 Oral 420 Other: # Voids 0 3 3 Weight 123.3 kg Results CBC & Chem 7: 04/03/24 03:22 04/03/24 03:22 Labs: Abnormal Lab Results - Last 24 Hours (Table) 04/03/24 04/03/24 Range/Units 03:22 03:22 MCHC 30.6 L (31.0-37.0) g/dL Plt Count 454 H (150-450) k/uL Anion Gap 12.80 H (4.00-12.00) mmol/L Glucose 133 H (70-110) mg/dL Total Bilirubin 0.2 L (0.3-1.2) mg/dL Albumin/Globulin Ratio 1.41 L (1.60-3.17) Ratio Assessment and Plan (1) Non-pressure chronic ulcer of skin of other sites with fat layer exposed Current Visit: Yes Status: Acute Code(s): L98.492 - NON-PRS CHRONIC ULCER OF SKIN OF SITES W FAT LAYER EXPOSED SNOMED Code(s): 03028013 (2) Pilonidal cyst Current Visit: Yes Status: Acute Code(s): L05.91 - PILONIDAL CYST WITHOUT ABSCESS SNOMED Code(s): 76853174
--- NOTE | 2024-04-03 12:51 | P.GSHP ---
History of Present Illness H&P Date: 04/03/24 CHIEF COMPLAINT: Pilonidal cyst HISTORY OF PRESENT ILLNESS: This is a 28-year-old female with a history of recurrent pilonidal cyst. She had surgery on the pilonidal cyst about 2 years ago but the cyst has reoccurred and is requesting excision of the pilonidal cyst. PAST MEDICAL HISTORY: See below PAST SURGICAL HISTORY: See below MEDICATIONS: See below ALLERGIES: See below SOCIAL HISTORY: No illicit drug use. REVIEW OF SYSTEMS: CONSTITUTIONAL: Denies fever or chills. HEENT: Denies blurred vision, vision changes, or eye pain. Denies hemoptysis CARDIOVASCULAR: Denies chest pain or pressure. RESPIRATORY: No shortness of breath. GASTROINTESTINAL: See HPI for pertinent findings HEMATOLOGIC: Denies bleeding disorders. GENITOURINARY: Denies any blood in urine or increased urinary frequency. SKIN: Denies pruitis. Denies rash. PHYSICAL EXAM: VITAL SIGNS: Reviewed GENERAL: Well-developed in no acute distress. ABDOMEN: Soft. Obese. Nondistended. Tenderness with palpation to right lower quadrant. Rectal: Pilonidal cyst NEUROLOGIC: Alert and oriented. Cranial nerves II through XII grossly intact. LABORATORY DATA: IMAGING: ASSESSMENT: 1. Recurrent pilonidal cyst PLAN: -Patient scheduled for pilonidal cystectomy with Dr. Rmaesh Physician Cane Loader note has been reviewed by physician. Signing provider agrees with the documented findings, assessment, and plan of care. Agree with above note Elvis Ramesh, Past Medical History Past Medical History: Osteoarthritis (OA), Skin Disorder, Sleep Apnea/CPAP/BIPAP Additional Past Medical History / Comment(s): hydratinitis suppertiva- skin condition boils axilla, under breasts and groin, pilonidal cyst - golf ball. drained in ER 11/17/22. cyst then ruptured in jan 2024. was seen in the ED. Prediabetic. Bipolar ptsd History of Any Multi-Drug Resistant Organisms: None Reported Past Surgical History: Section, Orthopedic Surgery Additional Past Surgical History / Comment(s): foot surgery 2006- bone chip removal, pilonidal cyst Past Anesthesia/Blood Transfusion Reactions: No Reported Reaction Additional Past Anesthesia/Blood Transfusion Reaction / Comment(s): no blood transfusion Past Psychological History: Anxiety, Bipolar, Depression, PTSD Additional Psychological History / Comment(s): 3 stays on 3W per pt- leading to legal guardian for financial issues. pt can sign medical Smoking Status: Former smoker, Vaper Past Alcohol Use History: None Reported, Rare Additional Past Alcohol Use History / Comment(s): 1 -2 cigarettes every few days. smoking since high school , trying to quit Past Drug Use History: Marijuana Additional Drug Use History / Comment(s): smokes marijauna. pt aware not to use 24 hrs before procedure - Past Family History Father Family Medical History: Coronary Artery Disease (CAD), Hypertension Mother Family Medical History: Hypertension Additional Family Medical History / Comment(s): anxiety/depression Medications and Allergies Home Medications Medication Instructions Recorded Confirmed Type Fluticasone Propionate 2 spray NASAL DIRECTED PRN 11/19/22 03/28/24 History [Fluticasone Propionate Nasal [place]] Lurasidone HCl 40 mg PO DAILY 11/19/22 03/28/24 History Acetaminophen Tab [Tylenol] 650 mg PO Q6H #30 tab 11/23/22 03/28/24 Rx HYDROcodone/APAP 5-325MG [[place] 1 tab PO Q6HR PRN 3 Days #12 tab 04/04/24 Rx 5-325] Ibuprofen [Motrin] 600 mg PO Q8HR PRN #30 tab 04/04/24 Rx Allergies Allergy/AdvReac Type Severity Reaction Status Date / Time Penicillins Allergy Unknown Swelling Verified 04/02/24 12:38 Sulfa (Sulfonamide Allergy Unknown Swelling Verified 04/02/24 12:38 Antibiotics) kiwi Allergy mouth Uncoded 04/02/24 12:38 itches Surgical - Exam Osteopathic Statement: *. No significant issues noted on an osteopathic structural exam other than those noted in the History and Physical/Consult. Vital Signs Temp Pulse Resp BP Pulse Ox 99 F 88 16 127/73 98 04/02/24 12:38 04/02/24 12:38 04/02/24 12:38 04/02/24 12:38 04/02/24 12:38 Results - Labs 04/03/24 03:22 04/03/24 03:22 Abnormal Lab Results - Last 24 Hours (Table) 04/03/24 04/03/24 Range/Units 03:22 03:22 MCHC 30.6 L (31.0-37.0) g/dL Plt Count 454 H (150-450) k/uL Anion Gap 12.80 H (4.00-12.00) mmol/L Glucose 133 H (70-110) mg/dL Total Bilirubin 0.2 L (0.3-1.2) mg/dL Albumin/Globulin Ratio 1.41 L (1.60-3.17) Ratio Diabetes panel 04/03/24 Range/Units 03:22 Sodium 140 (135-145) mmol/L Potassium 4.4 (3.5-5.5) mmol/L Chloride 105 (96-109) mmol/L Carbon Dioxide 22.2 (21.6-31.8) mmol/L BUN 11.5 (9.0-27.0) mg/dL Creatinine 0.7 (0.6-1.5) mg/dL Glucose 133 H (70-110) mg/dL Calcium 9.0 (8.7-10.3) mg/dL AST 18 (13-35) U/L ALT 20 (8-44) U/L Alkaline Phosphatase 77 (41-126) U/L Total Protein 7.0 (6.2-8.2) g/dL Albumin 4.1 (3.8-4.9) g/dL Calcium panel 04/03/24 Range/Units 03:22 Calcium 9.0 (8.7-10.3) mg/dL Albumin 4.1 (3.8-4.9) g/dL Pituitary panel 04/03/24 Range/Units 03:22 Sodium 140 (135-145) mmol/L Potassium 4.4 (3.5-5.5) mmol/L Chloride 105 (96-109) mmol/L Carbon Dioxide 22.2 (21.6-31.8) mmol/L BUN 11.5 (9.0-27.0) mg/dL Creatinine 0.7 (0.6-1.5) mg/dL Glucose 133 H (70-110) mg/dL Calcium 9.0 (8.7-10.3) mg/dL Adrenal panel 04/03/24 Range/Units 03:22 Sodium 140 (135-145) mmol/L Potassium 4.4 (3.5-5.5) mmol/L Chloride 105 (96-109) mmol/L Carbon Dioxide 22.2 (21.6-31.8) mmol/L BUN 11.5 (9.0-27.0) mg/dL Creatinine 0.7 (0.6-1.5) mg/dL Glucose 133 H (70-110) mg/dL Calcium 9.0 (8.7-10.3) mg/dL Total Bilirubin 0.2 L (0.3-1.2) mg/dL AST 18 (13-35) U/L ALT 20 (8-44) U/L Alkaline Phosphatase 77 (41-126) U/L Total Protein 7.0 (6.2-8.2) g/dL Albumin 4.1 (3.8-4.9) g/dL
--- NOTE | 2024-04-03 12:56 | P.PN ---
Subjective Progress Note Date: 04/03/24 SURGICAL PROGRESS NOTE CHIEF COMPLAINT: Pilonidal cyst HISTORY OF PRESENT ILLNESS: Patient is postop day #1 status post pilonidal cystectomy. She has wound VAC in place. She was seen by wound care service. personal fitness manager is working on arranging home care. Patient reports her pain is controlled. Afebrile. WBC 10.5. PHYSICAL EXAM: VITAL SIGNS: Reviewed. GENERAL: Well-developed in no acute distress. ABDOMEN: Soft. Nondistended. Nontender. Rectal: Pilonidal cyst in the upper cleft of the buttocks with wound VAC in place. Wound VAC is intact. No erythema noted. NEUROLOGIC: Alert and oriented. Cranial nerves II through XII grossly intact. ASSESSMENT: 1. Pilonidal cyst status post pilonidal cystectomy PLAN: -Continue wound VAC -personal fitness manager arranging home care and outpatient wound VAC -Anticipate discharge tomorrow Physician Administrative Sales Assistant note has been reviewed by physician. Signing provider agrees with the documented findings, assessment, and plan of care. Objective - Vital Signs Vital signs: Vital Signs Temp 97.4 F L 04/03/24 08:09 Pulse 93 04/03/24 08:09 Resp 17 04/03/24 08:09 BP 104/69 04/03/24 08:09 Pulse Ox 99 04/03/24 08:09 FiO2 Intake & Output 04/02/24 04/03/24 04/03/24 18:59 06:59 18:59 Intake Total 900 420 Output Total 3.4 Balance 896.6 420 Weight 123.3 kg Intake: IV 900 Oral 420 Output: Estimated Blood Loss 3.4 Other: # Voids 0 3 3 - Labs CBC & Chem 7: 04/03/24 03:22 04/03/24 03:22 Labs: Abnormal Lab Results - Last 24 Hours (Table) 04/03/24 04/03/24 Range/Units 03:22 03:22 MCHC 30.6 L (31.0-37.0) g/dL Plt Count 454 H (150-450) k/uL Anion Gap 12.80 H (4.00-12.00) mmol/L Glucose 133 H (70-110) mg/dL Total Bilirubin 0.2 L (0.3-1.2) mg/dL Albumin/Globulin Ratio 1.41 L (1.60-3.17) Ratio
[2024-04-04 08:44] VITALS: BP 112/76; PULSE 85; RESP 18; TEMP 97.3
--- NOTE | 2024-04-04 11:39 | P.DS ---
Providers Expected date of discharge: 04/04/24 Attending physician: Elvis Ramesh DO Primary care physician: Becky Vargas Hospital Course: Discharge diagnosis 1. Pilonidal cyst status post pilonidal cystectomy Hospital course This is a 28-year-old female with a known history of recurrent pilonidal cyst. She is status post pilonidal cystectomy. Patient reports her pain is controlled. She is afebrile. She is tolerating diet. Her wound VAC and home care has been arranged for outpatient. Patient is stable for discharge. Please refer to chart for any further details. Physician Railroad Design Consultant note has been reviewed by physician. Signing provider agrees with the documented findings, assessment, and plan of care. Attestation Patient admitted status post pilonidal cystectomy to set up home care. Wound VAC for home has been arranged for outpatient. She is stable for discharge. Follow-up with wound care. Elvis Ramesh DO Patient Condition at Discharge: Stable Plan - Discharge Summary Discharge Rx Participant: Yes New Discharge Prescriptions: New Ibuprofen [Motrin] 600 mg PO Q8HR PRN #30 tab PRN Reason: Pain HYDROcodone/APAP 5-325MG [Blue 5-325] 1 tab PO Q6HR PRN 3 Days #12 tab PRN Reason: Pain Continue Lurasidone HCl 40 mg PO DAILY Fluticasone Propionate [Fluticasone Propionate Nasal [place]] 2 spray NASAL DIRECTED PRN PRN Reason: Nasal Congestion Acetaminophen Tab [Tylenol] 650 mg PO Q6H #30 tab Discharge Medication List Fluticasone Propionate [Fluticasone Propionate Nasal [place]] 2 spray NASAL DIRECTED PRN 11/19/22 [History] Lurasidone HCl 40 mg PO DAILY 11/19/22 [History] Acetaminophen Tab [Tylenol] 650 mg PO Q6H #30 tab 11/23/22 [Rx] HYDROcodone/APAP 5-325MG [Blue 5-325] 1 tab PO Q6HR PRN 3 Days #12 tab 04/04/24 [Rx] Ibuprofen [Motrin] 600 mg PO Q8HR PRN #30 tab 04/04/24 [Rx] Follow up Appointment(s)/Referral(s): JEFFERSON Hopper [NON-STAFF] - As Needed (Please call [facility] if you have any questions about the wound vac. ) [facility] [NON-STAFF] - 04/09/24 9:15 am Elvis Ramesh DO [Doctor of Osteopathic Medicine] - 1 Week (office closed at time of discharge Please call to schedule appointment) [facility], [NON-STAFF] - 1-2 Days ([facility] will call you to schedule your in home nursing visits to manage the wound vac. ) Patient Instructions/Handouts: Pilonidal Cyst (GEN) Activity/Diet/Wound Care/Special Instructions: No driving while taking Blue You may shower. No soaking or tub baths for 2 weeks Very light activity until you are reevaluated at your follow up appointment with your surgeon Discharge Disposition: HOME WITH HOME HEALTH SERVICES
== END 2024-04-04 13:48 | disposition home health service (06) ==
LOC: OR 12:11 → 4SSUR 14:52 → OR 04-04 13:48
PROVIDERS: ATTEND Surgery
DX: L05.91 Pilonidal cyst without abscess (principal); L98.492 Non-pressure chronic ulcer of skin of other sites with fat layer exposed; G47.30 Sleep apnea, unspecified; Z87.891 Personal history of nicotine dependence; Z88.2 Allergy status to sulfonamides; Z88.1 Allergy status to other antibiotic agents; Z88.0 Allergy status to penicillin; D28.0 Benign neoplasm of vulva
CPT/HCPCS: 81025; 88304; 80053; 85025; 11770; J2250; J0330; J1644 ×3; J1100; J2710; J2405; J0690; J2003; J3010; J1885 ×3; J2704; Q9968; J1171; J1596

== ENCOUNTER 2024-06-14 17:27 | Emergency (ER) | payer BC, OTHER ==
[2024-06-14 17:38] VITALS: BP 170/100; PULSE 86; RESP 16; TEMP 97.8
--- NOTE | 2024-06-14 18:09 | ED ---
General Adult HPI - General Chief complaint: Recheck/Abnormal Lab/Rx Stated complaint: [facility]-Drug screening Time Seen by Provider: 06/14/24 17:43 Source: patient Mode of arrival: ambulatory Limitations: no limitations - History of Present Illness Initial comments: Dictation was produced using [employer]oo[employer] dictation software. please excuse any grammatical, word or spelling errors. Chief Complaint: 28-year-old female presents to the ER for [facility] drug testing History of Present Illness: Patient 28-year-old female presents to the emergency department for [facility] drug testing. Patient states she is anxious about this. As ordered by work after there were some claims made that patient was using drugs at work. Patient has no physical complaints. The ROS documented in this emergency department record has been reviewed and confirmed by me. Those systems with pertinent positive or negative responses have been documented in the HPI. All other systems are other negative and/or noncontributory. - Related Data Home Medications Medication Instructions Recorded Confirmed Fluticasone Propionate 2 spray NASAL DIRECTED PRN 11/19/22 03/28/24 [Fluticasone Propionate Nasal [place]] Lurasidone HCl 40 mg PO DAILY 11/19/22 03/28/24 Previous Rx's Medication Instructions Recorded Acetaminophen Tab [Tylenol] 650 mg PO Q6H #30 tab 11/23/22 HYDROcodone/APAP 5-325MG [[place] 1 tab PO Q6HR PRN 3 Days #12 tab 04/04/24 5-325] Ibuprofen [Motrin] 600 mg PO Q8HR PRN #30 tab 04/04/24 Allergies Allergy/AdvReac Type Severity Reaction Status Date / Time Penicillins Allergy Unknown Swelling Verified 04/02/24 12:38 Sulfa (Sulfonamide Allergy Unknown Swelling Verified 04/02/24 12:38 Antibiotics) kiwi Allergy mouth Uncoded 04/02/24 12:38 itches Review of Systems ROS Statement: Those systems with pertinent positive or pertinent negative responses have been documented in the HPI. ROS Other: All systems not noted in ROS Statement are negative. Past Medical History Past Medical History: Osteoarthritis (OA), Skin Disorder, Sleep Apnea/CPAP/BIPAP Additional Past Medical History / Comment(s): hydratinitis suppertiva- skin condition boils axilla, under breasts and groin, pilonidal cyst - golf ball. drained in ER 11/17/22. cyst then ruptured in jan 2024. was seen in the ED. Prediabetic. Bipolar ptsd History of Any Multi-Drug Resistant Organisms: None Reported Past Surgical History: Section, Orthopedic Surgery Additional Past Surgical History / Comment(s): foot surgery 2006- bone chip removal, pilonidal cyst Past Anesthesia/Blood Transfusion Reactions: No Reported Reaction Additional Past Anesthesia/Blood Transfusion Reaction / Comment(s): no blood transfusion Past Psychological History: Anxiety, Bipolar, Depression, PTSD Smoking Status: Former smoker, Vaper Past Alcohol Use History: None Reported, Rare Past Drug Use History: Marijuana - Past Family History Father Family Medical History: Coronary Artery Disease (CAD), Hypertension Mother Family Medical History: Hypertension Additional Family Medical History / Comment(s): anxiety/depression General Exam - General Exam Comments Initial Comments: General: Well-appearing, nontoxic, no acute distress. Head: Normocephalic, atraumatic Eyes: PERRLA, EOMI ENT: Airway patent Chest: Nonlabored breathing Skin: No visual rash, normal skin tone Neuro: Alert and oriented 3 Musculoskeletal: No gross abnormalities Limitations: no limitations Course Vital Signs 06/14/24 17:36 Temperature 97.8 F Pulse Rate 86 Respiratory 16 Rate Blood Pressure 170/100 O2 Sat by Pulse 98 Oximetry Medical Decision Making - Medical Decision Making Was pt. sent in by a medical professional or institution (BLANCA Stokes, BROKERAGE COORDINATOR, urgent care, hospital, or [facility]...) When possible be specific @ -No Did you speak to anyone other than the patient for history (EMS, parent, family, police, friend...)? What history was obtained from this source @ -No Did you review nursing and triage notes (agree or disagree)? Why? @ -I reviewed and agree with nursing and triage notes Were old charts reviewed (outside hosp., previous admission, EMS record, old EKG, old radiological studies, urgent care reports/EKG's, [facility] records)? Report findings @ -No old charts were reviewed Differential Diagnosis (chest pain, altered mental status, abdominal pain women, abdominal pain men, vaginal bleeding, musculoskeletal, weakness, fever, dyspnea, syncope, headache, dizziness, GI bleed, back pain, seizure, CVA, palpatations, mental health)? @ -Not applicable EKG interpreted by me (3pts min.). @ -None done X-rays interpreted by me (1pt min.). @ -None done CT interpreted by me (1pt min.). @ -None done U/S interpreted by me (1pt. min.). @ -None done What testing was considered but not performed or refused? (CT, X-rays, U/S, labs)? Why? @ -None What meds were considered but not given or refused? Why? @ -None Was smoking cessation discussed for >3mins.? @ -No Were there social determinants of health that impacted care today? How? (Homelessness, low income, unemployed, alcoholism, drug addiction, transportation, low edu. Level, literacy, decrease access to med. care, snf, rehab)? @ -No Was there de-escalation of care discussed even if they declined (Discuss DNR or withdrawal of care, Hospice)? DNR status @ -No What co-morbidities impacted this encounter? (DM, HTN, Smoking, COPD, CAD, Cancer, CVA, ARF, Chemo, Hep., AIDS, mental health diagnosis, sleep apnea, morbid obesity)? @ -None Was patient admitted / discharged? Hospital course, mention meds given and route, prescriptions, significant lab abnormalities, going to OR and other pertinent info. @ -28-year-old female presents to the ER for drug testing. Sign stable. Physical examination is benign. Did you discuss the management of the patient with other professionals (professionals i.e. , PA, BROKERAGE COORDINATOR, lab, RT, psych nurse, social welfare research worker, inspector watch parts, teacher, uniform patrol police officer, complex case manager)? Give summary @ -No Was critical care preformed (if so, how long)? @ -No Undiagnosed new problem with uncertain prognosis? @ -No Drug Therapy requiring intensive monitoring for toxicity (Heparin, Nitro, Insulin, Cardizem)? @ -No Were any procedures done? @ -No Diagnosis/symptom? Acute, or Chronic, or Acute on Chronic? Uncomplicated (without systemic symptoms) or Complicated (systemic symptoms)? @ -Drug testing Side effects of treatment? @ -No Exacerbation, Progression, or Severe Exacerbation? @ -No Poses a threat to life or bodily function? How? (Chest pain, [place], [place], pneumonia, PE, COPD, DKA, ARF, appy, cholecystitis, CVA, Diverticulitis, Homicidal, Suicidal, threat to staff... and all critical care pts) @ -No Disposition Clinical Impression: Employment-related drug testing, encounter for Disposition: HOME SELF-CARE Condition: Good Is patient prescribed a controlled substance at d/c from ED?: No Referrals: Becky Vargas MD [Primary Care Provider] - 1-2 days Time of Disposition: 18:09
== END 2024-06-14 19:48 | disposition home or self-care (01) ==
LOC: EC 17:27
DX: R79.9 Abnormal finding of blood chemistry, unspecified (principal); Z02.1 Encounter for pre-employment examination; F17.290 Nicotine dependence, other tobacco product, uncomplicated; Z88.0 Allergy status to penicillin; Z88.2 Allergy status to sulfonamides; Z91.018 Allergy to other foods
CPT/HCPCS: 99282